=== PATIENT | male | born 1950 | race Caucasian/White ===

== ENCOUNTER 2018-10-04 18:21 | Emergency (ER) | payer MEDICARE, OTHER, SELFPAY ==
[2018-10-04] VITALS (8 sets, daily range): BP systolic 120–139; BP diastolic 80–94; PULSE 63–76; RESP 14–26; TEMP 36.7; O2SAT 96–100; BMI 31.3
--- NOTE | 2018-10-04 17:35 | PC.NURSE ---
per dr Coronado pt is being sent here for in and out of afib. pt knows he's in afib when he becomes sob with small amount of exertion. pt has long history of afib with multiple cardioversions. pt's caridiologist is dr adair in [place]. today new dx of flutter, not in records.
--- NOTE | 2018-10-04 18:27 | DI.RAD.S_ITS ---
PROCEDURE: XR CHEST 1V INDICATIONS: new onset dysrhythmia TECHNIQUE: One view of the chest was acquired. COMPARISON: [facility], , CHEST 1 VIEW, 01/04/2013, 8:25. FINDINGS: Surgical changes and devices: Sternotomy wires and possible aneurysm clip are again seen. Lungs and pleura: Lungs are clear. No pleural effusions or pneumothorax. Mediastinum: Mediastinal contours appear normal. Heart size is enlarged. Bones and chest wall: No suspicious bony lesions. Overlying soft tissues appear unremarkable. IMPRESSION: No acute pulmonary pathology. Cardiomegaly. Dictated by: Kennedy Gray M.D. on 10/04/2018 at 18:47 Approved by: Kennedy Gray M.D. on 10/04/2018 at 18:47
[2018-10-04 18:54] LABS: Add Manual Diff / Slide Review NO; Basophils Absolute Auto 100 /uL (0-100); Basophils Percent Auto 0.9 % (0-2); Eosinophils Absolute Auto 200 /uL (0-450); Eosinophils Percent Auto 3.2 % (2-4); Hematocrit 42.1 % (41-53); Lymphocytes Absolute Auto 2100 /uL (1100-4500); Lymphocytes Percent Auto 28.8 % (25-40); Mean Corpuscular HGB Conc 33.2 % (30-36); Mean Corpuscular Volume 87.3 fL (80-100); Monocytes Absolute Auto 500 /uL (0-900); Monocytes Percent Auto 7.5 % (3-14); Neutrophils Absolute Auto 4300 /uL (1500-7000); Neutrophils Percent Auto 59.6 % (50-75); Platelet Count 186 X10^3/uL (150-400); Red Blood Cell Count 4.83 X10^6/uL (4.5-5.9); Red Cell Distribution Width 13.1 % (11.6-14.8); White Blood Cell Count 7.2 X10^3/uL (4.5-11.0)
[2018-10-04 19:03] LABS: Blood Urea Nitrogen 24 mg/dL (9-20); Calcium 9.5 mg/dL (8.4-10.2); Carbon Dioxide 26 mmol/L (22-32); Chloride 102 mmol/L (98-107); Creatine Kinase 126 U/L (55-170); Estimated Glomerular Filt Rate > 60.0 mL/min (>60); Glucose 99 mg/dL (80-110); Magnesium 2.2 mg/dL (1.6-2.3); Sodium 138 mmol/L (137-145)
[2018-10-04 19:15] LABS: Troponin I < 0.012 ng/mL (0.01-0.034)
[2018-10-04 19:17] LABS: CKMB % Relative Index 1.5 % (1.5-5.0); Creatine Kinase MB 1.91 ng/mL (<2.37); HEMOLYSIS 17 (0-50)
[2018-10-04] MEDS: SODIUM CHLORIDE 0.9% 1,000 ML 150 ML IV (19:18)
--- NOTE | 2018-10-04 19:37 | ED.ARRPALP ---
HPI - Arrhythmia/Palpitations General Chief Complaint: Arrhythmia/Palpitations Stated Complaint: afib, new aflutter onset 16hrs ago. Time Seen by Provider: 10/04/18 18:25 Source: patient and family Mode of arrival: ambulatory Limitations: no limitations History of Present Illness HPI narrative: 68-year-old male Nonsmoker with extensive atrial fibrillation history including multiple cardioversions and ablation presents with symptomatic AFib that started 16 hr ago. He has taken all of his medications as prescribed and feels an irregular heart rhythm and some chest pressure with shortness of breath. He denies chest pain and is not dizzy or lightheaded. He denies nausea or vomiting. He sees cardiology in [place] complaint: palpitations, irregular heart beat and atrial fibrillation Onset (ago): hour(s) Duration: constant Severity: mild Context: occurred during rest Arrhythmia history: atrial fibrillation Associated symptoms: chest pain and shortness of breath Related Data Home Medications Medication Instructions Recorded Confirmed CA PANTOTHENATE/FOLIC ACID/VIT 1 tab PO QDAY #0 12/15/12 (MULTIVITAMIN) Fish Oil 1,000 mg PO QDAY #0 12/27/12 magnesium oxide 500 mg PO QDAY #0 12/27/12 dofetilide [Tikosyn] 0.5 mg PO BID #0 01/04/13 acetaminophen [Tylenol Extra 1,000 mg PO Q6HP PRN #0 09/12/16 Strength] aspirin 325 mg PO QDAY #0 04/20/17 pravastatin 20 mg PO HS #0 04/20/17 Previous Rx's Medication Instructions Recorded lidocaine 1 tyree R QIDP PRN #30 gm 09/18/16 Allergies Allergy/AdvReac Type Severity Reaction Status Date / Time amiodarone [AMIODARONE] Allergy Severe THYROID Unverified 11/11/17 13:07 STORM etomidate [ETOMIDATE] AdvReac Severe uncontrollable Unverified 11/11/17 13:07 shaking Review of Systems Constitutional Denies chills, Denies fever(s), Denies lethargy and Denies weakness Eyes Denies change in vision, Denies eye discharge, Denies irritation and Denies loss of vision ENT Ears, Nose, Mouth, and Throat: Denies change in voice, Denies neck pain and Denies sore throat Cardiovascular Reports chest pain, Denies irregular heart rhythm, Denies lightheadedness, Reports palpitations, Reports dyspnea, Denies dyspnea on exertion and Denies orthopnea Respiratory Denies cough, Reports dyspnea, Denies dyspnea on exertion and Denies wheezing Gastrointestinal Gastrointestinal: Denies abdominal pain, Denies change in bowel habits, Denies diarrhea, Denies nausea and Denies vomiting Genitourinary Denies hematuria, Denies flank pain, Denies urinary incontinence and Denies urinary urgency Musculoskeletal Denies neck pain Integumentary/Breasts Denies pruritus, Denies erythema, Denies rash and Denies wounds Neurologic Denies confusion, Denies loss of vision and Denies weakness Psychiatric Denies anxiety, Denies confusion, Denies depression, Denies homicidal ideation and Denies suicidal ideation Endocrine Reports palpitations Hematologic/Lymphatic Denies easy bruising Allergic/Immunologic Denies wheezing PFSH Social History Smoking Status: Never smoker Social History Smoking Status: Never smoker Exam Narrative Exam Narrative: GENERAL: Pleasant 68-year-old male appears stated age, in mild distress HEAD: Atraumatic. Normocephalic. No temporal or scalp tenderness. EYES: Pupils equal round and reactive. Extraocular motions intact. No scleral icterus. No injection or drainage. ENT: Nose without bleeding, purulent drainage or septal hematoma. Throat without erythema, tonsillar hypertrophy or exudate. Uvula midline. Airway patent. NECK: Trachea midline. No JVD or lymphadenopathy. Supple, nontender, no meningeal signs. CARDIOVASCULAR: Regular rate and irregular rhythm without murmurs, gallops, or rubs. RESPIRATORY: Clear to auscultation. Breath sounds equal bilaterally. No wheezes, rales, or rhonchi. GASTROINTESTINAL: Abdomen soft, non-tender, nondistended. No hepato-splenomegaly, or palpable masses. No guarding. EXTREMITIES: No clubbing, cyanosis, or edema. No joint tenderness, effusion, or edema noted. BACK: Nontender without deformity or crepitance. No flank tenderness. NEURO: AOx3. SKIN: No rash or erythema. Initial Vital Signs Initial Vital Signs: Vital Signs Temperature 98.1 F 10/04/18 18:30 Pulse Rate 71 10/04/18 18:30 Respiratory Rate 18 10/04/18 18:30 Blood Pressure 129/89 10/04/18 18:30 Pulse Oximetry 100 03/04/19 18:30 Procedures Cardioversion Indication: symptomatic atrial fib Stability: Stable ASA Class: II Mallampati Airway Classification: Class II Time of Last PO Intake: 14:00 Preparation: quality assurance monitor chassis applied, pulse oximeter, capnometry used, supplemental O2 applied, suction/airway equipment at bedside and IV secured IV Propofol Dose (mgs): 40 Total Time of Sedation (Min): 6 ED Sedation Level: Minimal Cardiac rhythm post-cardioversion: sinus Patient tolerated procedure sedation: Well Complications sedation: none Course Orders Ordered: ED Orders 10/04/18 18:27 XR chest 1V Stat EKG-12 Lead Stat 10/04/18 18:38 Basic Metabolic Panel Stat Complete Blood Count AUTO DIFF Stat Magnesium Stat Thyroid Stimulating Hormone Stat Troponin & CK Cardiac Panel Stat Discontinued Medications Sodium Chloride (Normal Saline 0.9%) 1,000 mls @ 150 mls/hr IV CONT ERICH Last Infusion: 10/04/18 21:45 Dose: 0 mls/hr Admin: 10/04/18 19:18 Dose: 150 mls/hr Propofol (Diprivan) 40 mg IV NOW ONE Stop: 10/04/18 20:53 Last Admin: 10/04/18 20:52 Dose: 40 mg Reevaluation(s) Reevaluation #1: While staff was preparing patient for conscious sedation I contacted his lead process engineer to discuss post shock anticoagulation and in this scenario they recommended 3 weeks of Eliquis. Patient was consented and given 1st push appropriate fall and then spontaneously converted to a normal sinus rhythm. We allowed meds to wear off and he was asymptomatic and said he felt great. He was observed for another hour so and maintained his sinus rhythm Vital Signs - 8 hr 10/04/18 19:41 10/04/18 20:25 10/04/18 20:35 Pulse Rate 69 65 63 Respiratory Rate 17 14 16 Blood Pressure Blood Pressure [Left Arm] 123/85 120/91 H 130/90 Pulse Oximetry 100 10/04/18 20:55 10/04/18 21:00 10/04/18 21:07 Pulse Rate 72 69 76 Respiratory Rate 20 20 Blood Pressure Blood Pressure [Left Arm] 133/84 120/80 Pulse Oximetry 96 97 10/04/18 21:45 Pulse Rate 69 Respiratory Rate 16 Blood Pressure 130/84 Blood Pressure [Left Arm] Pulse Oximetry 98 MDM - Arrhythmia/Palpitations Lab Data Result diagrams: 10/04/18 18:38 10/04/18 18:38 Lab Results 10/04/18 10/04/18 10/04/18 Range/Units 18:38 18:38 18:38 WBC 7.2 (4.5-11.0) X10^3/uL RBC 4.83 (4.5-5.9) X10^6/uL Hgb 14.0 (13.5-17.5) g/dL Hct 42.1 (41-53) % MCV 87.3 (80-100) fL MCH 29.0 (26-34) PG MCHC 33.2 (30-36) % RDW 13.1 (11.6-14.8) % Plt Count 186 (150-400) X10^3/uL Neut % (Auto) 59.6 (50-75) % Lymph % (Auto) 28.8 (25-40) % [place] % (Auto) 7.5 (3-14) % Eos % (Auto) 3.2 (2-4) % Baso % (Auto) 0.9 (0-2) % Neut # (Auto) 4300 (2268-0261) /uL Lymph # (Auto) 2100 (7039-2780) /uL [place] # (Auto) 500 (0-900) /uL Eos # (Auto) 200 (0-450) /uL Baso # (Auto) 100 (0-100) /uL Sodium 138 (137-145) mmol/L Potassium 4.0 (3.4-5.1) mmol/L Chloride 102 (98-107) mmol/L Carbon Dioxide 26 (22-32) mmol/L BUN 24 H (9-20) mg/dL Creatinine 0.80 (0.66-1.25) mg/dL Estimated GFR > 60.0 (>60) mL/min BUN/Creatinine Ratio 30.0 H (6-22) Glucose 99 (80-110) mg/dL Calcium 9.5 (8.4-10.2) mg/dL Magnesium 2.2 (1.6-2.3) mg/dL Total Creatine Kinase 126 (55-170) U/L CK-MB (CK-2) 1.91 (<2.37) ng/mL CK-MB (CK-2) Rel Index 1.5 (1.5-5.0) % Troponin I < 0.012 (0.01-0.034) ng/mL TSH 1.84 (0.47-4.68) uIU/mL Discharge Plan Departure Patient Disposition: Home Clinical Impression: Atrial fibrillation Qualifiers: Atrial fibrillation type: paroxysmal Qualified Code(s): I48.0 - Paroxysmal atrial fibrillation Discharge Date/Time: 10/04/18 21:45 Interventions: ED Discharge Assessment Last Done: 10/04/18 21:45 Instructions: DI for Atrial Fibrillation Activity Restrictions/Additional Instructions: *You have been diagnosed with [ atrial fibrillation ] *What to do: *Take medications as directed *Follow up with your primary care provider in 2-3 days, call for an appointment. Let them know you were seen in the Emergency Department and that we ask that you be seen in follow up *Return to ER if you should have any new, worsening or concerning symptoms Prescriptions: No Action CA PANTOTHENATE/FOLIC ACID/VIT (MULTIVITAMIN) 1 tab PO QDAY Qty: 0 RF: 0 Fish Oil 1,000 mg PO QDAY Qty: 0 RF: 0 magnesium oxide 500 MG tablet 500 mg PO QDAY Qty: 0 RF: 0 dofetilide [Tikosyn] 500 MCG capsule 0.5 mg PO BID Qty: 0 RF: 0 acetaminophen [Tylenol Extra Strength] 500 MG tablet 1,000 mg PO Q6HP PRNQty: 0 RF: 0 lidocaine 5 % cream 1 tyree R QIDP PRNQty: 30 RF: 2 pravastatin 20 MG tablet 20 mg PO HS Qty: 0 RF: 0 aspirin 325 MG tablet 325 mg PO QDAY Qty: 0 RF: 0 Referrals: Cabrera Zafar MD [Primary Care Provider] -
[2018-10-04 19:46] LABS: Thyroid Stimulating Hormone 1.84 uIU/mL (0.47-4.68)
--- NOTE | 2018-10-04 20:06 | ED_ITS ---
HPI - Arrhythmia/Palpitations General Chief Complaint: Arrhythmia/Palpitations Stated Complaint: afib, new aflutter onset 16hrs ago. Time Seen by Provider: 10/04/18 18:25 Source: patient and family Mode of arrival: ambulatory Limitations: no limitations History of Present Illness HPI narrative: 68-year-old male Nonsmoker with extensive atrial fibrillation history including multiple cardioversions and ablation presents with symptomatic AFib that started 16 hr ago. He has taken all of his medications as prescribed and feels an irregular heart rhythm and some chest pressure with shortness of breath. He denies chest pain and is not dizzy or lightheaded. He denies nausea or vomiting. He sees cardiology in [place] complaint: palpitations, irregular heart beat and atrial fibrillation Onset (ago): hour(s) Duration: constant Severity: mild Context: occurred during rest Arrhythmia history: atrial fibrillation Associated symptoms: chest pain and shortness of breath Related Data Home Medications Medication Instructions Recorded Confirmed CA PANTOTHENATE/FOLIC ACID/VIT 1 tab PO QDAY #0 12/15/12 (MULTIVITAMIN) Fish Oil 1,000 mg PO QDAY #0 12/27/12 magnesium oxide 500 mg PO QDAY #0 12/27/12 dofetilide [Tikosyn] 0.5 mg PO BID #0 01/04/13 acetaminophen [Tylenol Extra 1,000 mg PO Q6HP PRN #0 09/12/16 Strength] aspirin 325 mg PO QDAY #0 04/20/17 pravastatin 20 mg PO HS #0 04/20/17 Previous Rx's Medication Instructions Recorded lidocaine 1 tyree R QIDP PRN #30 gm 09/18/16 Allergies Allergy/AdvReac Type Severity Reaction Status Date / Time amiodarone [AMIODARONE] Allergy Severe THYROID Unverified 11/11/17 13:07 STORM etomidate [ETOMIDATE] AdvReac Severe uncontrollable Unverified 11/11/17 13:07 shaking Review of Systems Constitutional Denies chills, Denies fever(s), Denies lethargy and Denies weakness Eyes Denies change in vision, Denies eye discharge, Denies irritation and Denies loss of vision ENT Ears, Nose, Mouth, and Throat: Denies change in voice, Denies neck pain and Denies sore throat Cardiovascular Reports chest pain, Denies irregular heart rhythm, Denies lightheadedness, Reports palpitations, Reports dyspnea, Denies dyspnea on exertion and Denies or thopnea Respiratory Denies cough, Reports dyspnea, Denies dyspnea on exertion and Denies wheezing Gastrointestinal Gastrointestinal: Denies abdominal pain, Denies change in bowel habits, Denies diarrhea, Denies nausea and Denies vomiting Genitourinary Denies hematuria, Denies flank pain, Denies urinary incontinence and Denies urinary urgency Musculoskeletal Denies neck pain Integumentary/Breasts Denies pruritus, Denies erythema, Denies rash and Denies wounds Neurologic Denies confusion, Denies loss of vision and Denies weakness Psychiatric Denies anxiety, Denies confusion, Denies depression, Denies homicidal ideation and Denies suicidal ideation Endocrine Reports palpitations Hematologic/Lymphatic Denies easy bruising Allergic/Immunologic Denies wheezing PFSH Social History Smoking Status: Never smoker Social History Smoking Status: Never smoker Exam Narrative Exam Narrative: GENERAL: Pleasant 68-year-old male appears stated age, in mild distress HEAD: Atraumatic. Normocephalic. No temporal or scalp tenderness. EYES: Pupils equal round and reactive. Extraocular motions intact. No scleral icterus. No injection or drainage. ENT: Nose without bleeding, purulent drainage or septal hematoma. Throat without erythema, tonsillar hypertrophy or exudate. Uvula midline. Airway patent. NECK: Trachea midline. No JVD or lymphadenopathy. Supple, nontender, no meningeal signs. CARDIOVASCULAR: Regular rate and irregular rhythm without murmurs, gallops, or rubs. RESPIRATORY: Clear to auscultation. Breath sounds equal bilaterally. No wheezes, rales, or rhonchi. GASTROINTESTINAL: Abdomen soft, non-tender, nondistended. No hepato- splenomegaly, or palpable masses. No guarding. EXTREMITIES: No clubbing, cyanosis, or edema. No joint tenderness, effusion, or edema noted. BACK: Nontender without deformity or crepitance. No flank tenderness. NEURO: AOx3. SKIN: No rash or erythema. Initial Vital Signs Initial Vital Signs: Vital Signs Temperature 98.1 F 10/04/18 18:30 Pulse Rate 71 10/04/18 18:30 Respiratory Rate 18 10/04/18 18:30 Blood Pressure 129/89 10/04/18 18:30 Pulse Oximetry 100 10/04/18 18:30 Procedures Cardioversion Indication: symptomatic atrial fib Stability: Stable ASA Class: II Mallampati Airway Classification: Class II Time of Last PO Intake: 14:00 Preparation: secured entrance monitor applied, pulse oximeter, capnometry used, supplemental O2 applied, suction/airway equipment at bedside and IV secured IV Propofol Dose (mgs): 40 Total Time of Sedation (Min): 6 ED Sedation Level: Minimal Cardiac rhythm post-cardioversion: sinus Patient tolerated procedure sedation: Well Complications sedation: none Course Orders Ordered: ED Orders 10/04/18 18:27 XR chest 1V Stat EKG-12 Lead Stat 10/04/18 18:38 Basic Metabolic Panel Stat Complete Blood Count AUTO DIFF Stat Magnesium Stat Thyroid Stimulating Hormone Stat Troponin & CK Cardiac Panel Stat Discontinued Medications Sodium Chloride (Normal Saline 0.9%) 1,000 mls @ 150 mls/hr IV CONT ERICH Last Infusion: 10/04/18 21:45 Dose: 0 mls/hr Admin: 10/04/18 19:18 Dose: 150 mls/hr Propofol (Diprivan) 40 mg IV NOW ONE Stop: 10/04/18 20:53 Last Admin: 10/04/18 20:52 Dose: 40 mg Reevaluation(s) Reevaluation #1: While staff was preparing patient for conscious sedation I contacted his opal miner to discuss post shock anticoagulation and in this scenario they recommended 3 weeks of Eliquis. Patient was consented and given 1st push appropriate fall and then spontaneously converted to a normal sinus rhythm. We allowed meds to wear off and he was asymptomatic and said he felt great. He was observed for another hour so and maintained his sinus rhythm Vital Signs - 8 hr 10/04/18 19:41 10/04/18 20:25 10/04/18 20:35 Pulse Rate 69 65 63 Respiratory Rate 17 14 16 Blood Pressure Blood Pressure [Left Arm] 123/85 120/91 H 130/90 Pulse Oximetry 100 10/04/18 20:55 10/04/18 21:00 10/04/18 21:07 Pulse Rate 72 69 76 Respiratory Rate 20 20 Blood Pressure Blood Pressure [Left Arm] 133/84 120/80 Pulse Oximetry 96 97 10/04/18 21:45 Pulse Rate 69 Respiratory Rate 16 Blood Pressure 130/84 Blood Pressure [Left Arm] Pulse Oximetry 98 MDM - Arrhythmia/Palpitations Lab Data Result diagrams: 10/04/18 18:38 10/04/18 18:38 Lab Results 10/04/18 10/04/18 10/04/18 Range/Units 18:38 18:38 18:38 WBC 7.2 (4.5-11.0) X10^3/uL RBC 4.83 (4.5-5.9) X10^6/uL Hgb 14.0 (13.5-17.5) g/dL Hct 42.1 (41-53) % MCV 87.3 (80-100) fL MCH 29.0 (26-34) PG MCHC 33.2 (30-36) % RDW 13.1 (11.6-14.8) % Plt Count 186 (150-400) X10^3/uL Neut % (Auto) 59.6 (50-75) % Lymph % (Auto) 28.8 (25-40) % [place] % (Auto) 7.5 (3-14) % Eos % (Auto) 3.2 (2-4) % Baso % (Auto) 0.9 (0-2) % Neut # (Auto) 4300 (3414-7244) /uL Lymph # (Auto) 2100 (3103-9348) /uL [place] # (Auto) 500 (0-900) /uL Eos # (Auto) 200 (0-450) /uL Baso # (Auto) 100 (0-100) /uL Sodium 138 (137-145) mmol/L Potassium 4.0 (3.4-5.1) mmol/L Chloride 102 (98-107) mmol/L Carbon Dioxide 26 (22-32) mmol/L BUN 24 H (9-20) mg/dL Creatinine 0.80 (0.66-1.25) mg/dL Estimated GFR > 60.0 (>60) mL/min BUN/Creatinine Ratio 30.0 H (6-22) Glucose 99 (80-110) mg/dL Calcium 9.5 (8.4-10.2) mg/dL Magnesium 2.2 (1.6-2.3) mg/dL Total Creatine Kinase 126 (55-170) U/L CK-MB (CK-2) 1.91 (<2.37) ng/mL CK-MB (CK-2) Rel Index 1.5 (1.5-5.0) % Troponin I < 0.012 (0.01-0.034) ng/mL TSH 1.84 (0.47-4.68) uIU/mL Discharge Plan Departure Patient Disposition: Home Clinical Impression: Atrial fibrillation Qualifiers: Atrial fibrillation type: paroxysmal Qualified Code(s): I48.0 - Paroxysmal atrial fibrillation Discharge Date/Time: 10/04/18 21:45 Interventions: ED Discharge Assessment Last Done: 10/04/18 21:45 Instructions: DI for Atrial Fibrillation Activity Restrictions/Additional Instructions: *You have been diagnosed with [ atrial fibrillation ] *What to do: *Take medications as directed *Follow up with your primary care provider in 2-3 days, call for an appointment. Let them know you were seen in the Emergency Department and that we ask that you be seen in follow up *Return to ER if you should have any new, worsening or concerning symptoms Prescriptions: No Action CA PANTOTHENATE/FOLIC ACID/VIT (MULTIVITAMIN) 1 tab PO QDAY Qty: 0 RF: 0 Fish Oil 1,000 mg PO QDAY Qty: 0 RF: 0 magnesium oxide 500 MG tablet 500 mg PO QDAY Qty: 0 RF: 0 dofetilide [Tikosyn] 500 MCG capsule 0.5 mg PO BID Qty: 0 RF: 0 acetaminophen [Tylenol Extra Strength] 500 MG tablet 1,000 mg PO Q6HP PRNQty: 0 RF: 0 lidocaine 5 % cream 1 tyree R QIDP PRNQty: 30 RF: 2 pravastatin 20 MG tablet 20 mg PO HS Qty: 0 RF: 0 aspirin 325 MG tablet 325 mg PO QDAY Qty: 0 RF: 0 Referrals: Cabrera Zafar MD [Primary Care Provider] -
[2018-10-04] MEDS: PROPOFOL 200 MG/20 ML VIAL 40 MG IV (20:52)
--- NOTE | 2018-10-04 20:55 | PC.NURSE ---
After the patient was given 40mg of propofol by Dr. Roa patient showed a NSR on the monitor. provider and respiratory at bedside. no new orders at this time. patient did not get cardioverted. patient tolerated well. patient states that he feels much better and has no chest pressure.
--- NOTE | 2018-10-04 20:55 | PC.NURSE ---
After the patient was given 40mg of propofol by Dr. Roa patient showed a NSR on the monitor. provider and respiratory at bedside. no new orders at this time. patient did not get cardioverted via shock. patient tolerated medication well. patient states that he feels much better and has no chest pressure.
== END 2018-10-04 21:45 | disposition home or self-care (01) ==
PROVIDERS: Emergency Provider Emergency Medicine; Family Provider Internal Medicine; PCP Internal Medicine
DX: I48.0 Paroxysmal atrial fibrillation (principal)
CPT/HCPCS: 36591; 71045; 80048; 82550; 82553; 83735; 84443; 84484; 85025; 92960; 93005; 93010; 94770; 96361; 96374; 99284; 99285; J2704

== ENCOUNTER → 2018-11-08 09:18 | Outpatient (CLI) | payer MEDICARE, OTHER, SELFPAY ==
--- NOTE | 2018-11-08 | DI.RAD.S_ITS ---
PROCEDURE: FL JOINT INJECTION LARGE LT INDICATIONS: PRIMARY OSTEOARTHRITIS, LT SHOULDER TECHNIQUE: The indications, alternatives, benefits, risks, and complications of the procedure were explained to the patient. Written informed consent was obtained and placed in the chart. The patient was placed in an appropriate position on the fluoroscopy table, and a site was chosen for percutaneous access under fluoroscopic guidance. The site was prepped and draped in a sterile fashion. Local anesthetic was administered using a 1% lidocaine solution. A hypodermic or spinal needle was then used to access the symptomatic joint. Intra-articular location of the needle tip was confirmed by injecting a small amount of contrast, followed by steroid administration. The needle was then withdrawn, and a bandage applied to the puncture site. FINDINGS: Joint injected: Left shoulder Medications injected: 5 mL of 40 mg/mL Kenalog and 0.5% Ropivacaine mixture. Complications: None. IMPRESSION: Successful fluoroscopically guided administration of steroid and anaesthetic solution into the left shoulder joint. Dictated by: Juanjose Best M.D. on 11/08/2018 at 12:40 Approved by: Juanjose Best M.D. on 11/08/2018 at 12:42
== END ==
PROVIDERS: PCP Internal Medicine
DX: M19.012 Primary osteoarthritis, left shoulder (principal)
CPT/HCPCS: 20610; 77002

== ENCOUNTER → 2019-02-04 13:44 | Outpatient (CLI) | payer MEDICARE, OTHER, SELFPAY ==
--- NOTE | 2019-02-04 | DI.RAD.S_ITS ---
PROCEDURE: FL JOINT INJECTION LARGE LT INDICATIONS: pain in left shoulder TECHNIQUE: The indications, alternatives, benefits, risks, and complications of the procedure were explained to the patient. Written informed consent was obtained and placed in the chart. The patient was placed in an appropriate position on the fluoroscopy table, and a site was chosen for percutaneous access under fluoroscopic guidance. The site was prepped and draped in a sterile fashion. Local anesthetic was administered using a 1% lidocaine solution. A hypodermic or spinal needle was then used to access the symptomatic joint. Intra-articular location of the needle tip was confirmed by injecting a small amount of contrast, followed by steroid administration. The needle was then withdrawn, and a bandage applied to the puncture site. FINDINGS: Joint injected: Left shoulder Medications injected: 4 mL of 40 mg/mL Kenalog and 0.5% Ropivacaine mixture. Patient's pain before injection: 1 out of 10. Patient's pain after injection: 0 out of 10. Complications: None. IMPRESSION: Successful fluoroscopically guided administration of steroid and anaesthetic solution into the left glenohumeral joint. Dictated by: Harrison Ballesteros M.D. on 02/04/2019 at 16:44 Approved by: Harrison Ballesteros M.D. on 02/04/2019 at 16:45
== END ==
PROVIDERS: PCP Internal Medicine; Visit Provider Orthopaedic Surgery
DX: M25.512 Pain in left shoulder (principal)
CPT/HCPCS: 20610; 77002

== ENCOUNTER → 2019-06-23 06:35 | Outpatient (CLI) | payer MEDICARE, OTHER, SELFPAY ==
--- NOTE | 2019-06-23 06:44 | DI.MRI.S_ITS ---
PROCEDURE: MR SHOULDER LT WO CON INDICATIONS: Chronic left shoulder pain with decreased range of motion TECHNIQUE: Noncontrast oblique coronal T2 fast spin echo with fat saturation, oblique sagittal T1 spin echo and T2 fast spin echo with fat saturation, axial T1 spin echo and T2 fast spin echo with fat saturation through the shoulder. COMPARISON: [facility] [place], CR, XR SHOULDER 2+ VIEWS LEFT, 05/24/2019, 14:50. FINDINGS: Image quality: Excellent. Rotator cuff: Infraspinatus tendinopathy with full-thickness articular sided tear and low-grade bursal surface fraying. Mild teres minor tendinopathy. Supraspinatus tendinopathy with partial thickness bursal sided an articular sided tear. No full-thickness or retracted defect. High-grade bursal and articular sided partial-thickness versus complete rupture of the subscapularis tendon.No definite rotator cuff muscle atrophy. Bones and bursae: No bone marrow contusions or fractures. However, there is prominent marrow edema in the subchondral humeral head and glenoid. Full-thickness glenohumeral articular cartilage loss and subchondral sclerosis/spurring. Large joint effusion, with diffuse irregularity suggestive of reactive synovitis and/or small loose bodies/debris. Prominent cyst or erosion involving the anterior glenoid for example image 18 series 6 Bilateral moderate acromioclavicular joint degeneration. Acromion demonstrates conventional anatomy, without an os acromiale. Mild subacromial-subdeltoid bursitis. Capsule and soft tissues: Circumferential macerated labral tear which could be chronic/degenerative. Long head of the biceps tendon markedly thickened with intrasubstance T2 hyperintensity although no definite complete rupture seen. Complete obliteration of the subcoracoid fat. Coracohumeral ligament not well seen and may be torn. IMPRESSION: Severe glenohumeral degenerative joint disease with large joint effusion. Diffuse intrasynovial irregularity suggestive of reactive synovitis and/or loose bodies or debris. Large T2 hyperintense cyst or erosion involving the anterior glenoid. Cannot exclude erosive arthropathy. Full-thickness tear of the subscapularis tendon. Severe long head biceps tendinopathy without definite medial subluxation. No complete rupture Infraspinatus tendinopathy with low-grade bursal surface fraying and partial-thickness articular sided tear. Teres minor tendinopathy Supraspinatus tendinopathy and bursal and articular surface fraying. Ill-defined circumferential macerated labral tear which could be chronic/degenerative in nature. Dictated by: Yogesh Her M.D. on 06/23/2019 at 8:43 Approved by: Yogesh Her M.D. on 06/23/2019 at 8:55
== END ==
PROVIDERS: PCP Internal Medicine; Visit Provider Orthopaedic Surgery
DX: M19.012 Primary osteoarthritis, left shoulder (principal); M19.011 Primary osteoarthritis, right shoulder; M75.121 Complete rotator cuff tear or rupture of right shoulder, not specified as traumatic; M25.461 Effusion, right knee; M67.911 Unspecified disorder of synovium and tendon, right shoulder; G89.29 Other chronic pain
CPT/HCPCS: 73221

== ENCOUNTER 2019-07-07 12:09 | Emergency (ER) | payer MEDICARE, OTHER, SELFPAY ==
[2019-07-07] VITALS (12 sets, daily range): BP systolic 127–147; BP diastolic 85–108; PULSE 64–76; RESP 10–20; TEMP 37.3; O2SAT 94–100; BMI 31.3
--- NOTE | 2019-07-07 12:17 | DI.RAD.S_ITS ---
PROCEDURE: XR ANKLE RT 2V INDICATIONS: pain, deformity TECHNIQUE: 3 views of the ankle were acquired. COMPARISON: None. FINDINGS: Bones: There is roughly 17 mm of lateral dislocation, and 20 mm of posterior dislocation of the talus, relative to the distal tibia. There is a mildly displaced fracture of the medial malleolus. There is a moderately displaced oblique fracture of the distal fibula. There is a 30 mm diameter fragment projecting over the posterior aspect of the distal tibia, which may represent a posterior malleolus fracture. Soft tissues: No tibiotalar joint effusion. Achilles tendon appears normal. IMPRESSION: 1. Fracture dislocation of the ankle as described above. Dictated by: Swetha Guerrero M.D. on 07/07/2019 at 13:35 Approved by: Swetha Guerrero M.D. on 07/07/2019 at 13:36
--- NOTE | 2019-07-07 13:19 | ED_ITS ---
HPI - Extremity Injury (Lower) General Chief Complaint: Extremity Injury, Lower Stated Complaint: Right ankle injury Time Seen by Provider: 07/07/19 13:19 Source: EMS Mode of arrival: EMS History of Present Illness HPI Narrative: 69-year-old gentleman walking his dog earlier this morning and twisted his right foot. Immediate deformity noted he was unable to walk on it. Upon arrival in the ER grossly deformed but is neurovascularly intact. There are no additional injuries associated with this and this was not related to a fall Onset (ago): hour(s) Related Data Home Medications Medication Instructions Recorded Confirmed CA PANTOTHENATE/FOLIC ACID/VIT 1 tab PO QDAY #0 12/15/12 (MULTIVITAMIN) Fish Oil 1,000 mg PO QDAY #0 12/27/12 magnesium oxide 500 mg PO QDAY #0 12/27/12 dofetilide [Tikosyn] 0.5 mg PO BID #0 01/04/13 07/07/19 acetaminophen [Tylenol Extra 1,000 mg PO Q6HP PRN #0 09/12/16 Strength] aspirin 325 mg PO QDAY #0 04/20/17 oxycodone-acetaminophen 1 tab PO BEDTIME PRN 07/07/19 07/07/19 pravastatin 20 mg PO DAILY 07/07/19 Previous Rx's Medication Instructions Recorded lidocaine 1 tyree R QIDP PRN #30 gm 09/18/16 oxycodone-acetaminophen [Percocet] 1 tab PO Q6H PRN #10 tab 07/07/19 Allergies Allergy/AdvReac Type Severity Reaction Status Date / Time amiodarone [AMIODARONE] Allergy Severe THYROID Verified 07/07/19 12:17 STORM etomidate [ETOMIDATE] AdvReac Severe uncontrollable Verified 07/07/19 12:17 shaking Review of Systems Review of Systems Narrative: Has had multiple episodes of atrial fibrillation in the past feels that he currently is in sinus rhythm. He describes no syncope, no chest pain no shortness of breath. otherwise unremarkable Patient History Medical History (Updated 07/07/19 @ 16:13 by Priscila Walsh MD) A-fib (Acute) Ankle fracture, right (Acute 07/07/19) Arthritis (Acute) CAD (coronary artery disease) (Acute) Cardiomyopathy (Acute) GERD (gastroesophageal reflux disease) (Acute) Hearing impaired (Acute) HLD (hyperlipidemia) (Acute) Low back pain (Acute) MARTÍN treated with BiPAP (Acute) Osteoarthritis (Acute) Scoliosis (Acute) SVT (supraventricular tachycardia) (Acute) Surgical History (Updated 07/07/19 @ 15:31 by Claudia Redman RN) History of arthroplasty of right hip (Acute ~12/2013) History of bilateral carpal tunnel release (Acute ~1977) History of colonoscopy (Acute) Hx of aortic valve repair (Acute) Hx of bilateral inguinal hernia repair (Acute 04/23/17) Hx of hemorrhoidectomy (Acute ~12/2016) Hx of maze procedure (Acute) Hx of total hip arthroplasty (Acute) Social History Smoking Status: Never smoker Smoking Status: Never smoker Substance Use Type: does not use Exam Narrative Exam Narrative: General: Healthy appearing, in no acute distress. Able to give a complete and full history cooperative. Well-nourished well-developed HEENT: Moist mucous membranes, normal sclera with reactive pupils, Neck: No JVD, supple Respiratory: Lungs are clear to auscultation, no wheezing no rales no rhonchi. Full and symmetrical air movement Cardiac: Regular rate and rhythm no murmurs no bruits Abdomen: Soft nontender good bowel tones, no flank pain Skin: Warm and dry, no rashes Neurologic: Grossly neurologically intact with no obvious asymmetries or abnormalities Extremities: Right ankle deformity. Neuro vascularly intact. Full pulses palpable. Psych: appropriate insight and affect Initial Vital Signs Initial Vital Signs: Vital Signs Temperature 99.2 F 07/07/19 12:17 Pulse Rate 76 07/07/19 12:17 Respiratory Rate 15 07/07/19 12:17 Blood Pressure 147/90 H 07/07/19 12:17 Pulse Oximetry 94 07/07/19 12:17 Procedures Orthopedic Fracture Reduction right ankle: Time Out Performed: Yes Side: right Fracture Reduction Location: tibia Analgesia: procedural sedation Technique: direct manipulation and traction/counter-traction Post Reduction X-rays Demonstrate: acceptable reduction Post-reduction neuro exam: intact Post-reduction vascular exam: intact Splint Applied: Yes Patient Tolerated Procedure: Well Orthopedic Splinting/Casting ankle: Side: right Lower Extremity Injury Location: ankle Lower Extremity Immobilizer: posterior splint and stirrup splint Other Orthopedic Equipment: crutches Post splinting neuro exam: intact Post splinting vascular exam: intact Placed by: Provider Procedural Sedation Patient Age: Patient is 5yrs or older Consent signed: Yes Time out performed: Yes Indication: fracture/dislocation reduction ASA Class: II Mallampati Airway Classification: Class II Time of Last PO Intake: 08:00 Preparation: awake overnight monitor applied, pulse oximeter, supplemental O2 applied, suction/airway equipment at bedside and IV secured IV Propofol dose (mg): 60 Intraservice time/total sedation time (min): 12 ED Sedation Level: Moderate (Concious) Patient Tolerated Procedure: Well Complications: none Course Orders Ordered: ED Orders 07/07/19 12:17 XR ankle RT 2V Stat 07/07/19 14:09 EKG-12 Lead Stat 07/07/19 14:21 Complete Blood Count AUTO DIFF Stat Comprehensive Metabolic Panel Stat 07/07/19 15:29 XR ankle RT 2V Stat Discontinued Medications Ketorolac Tromethamine (Toradol) 15 mg IV NOW ONE Stop: 07/07/19 16:07 Last Admin: 07/07/19 16:20 Dose: 15 mg Documented by: GEORGIAARRINGTO Propofol (Diprivan) 45 mg 0.5 mg/kg (45 mg) IV NOW ONE Stop: 07/07/19 14:11 Last Admin: 07/07/19 16:02 Dose: Not Given Documented by: GEORGIAARRINGTO Propofol (Diprivan) 60 mg IV NOW ONE Stop: 07/07/19 16:01 Last Admin: 07/07/19 15:15 Dose: 60 mg Documented by: MO Reevaluation(s) Reevaluation #1: Post reduction x-ray looks beautiful. Splint is nicely applied. Patient has recovered nicely from his conscious sedation. is in the room when questions are answered. Pain is well controlled. Crutches will be given and he will be discharged home Time: 16:07 Vital Signs Vital signs: Vital Signs - 8 hr 07/07/19 12:17 07/07/19 13:05 07/07/19 14:30 Temperature 99.2 F Pulse Rate 76 65 74 Respiratory Rate 15 14 Blood Pressure 147/90 H Blood Pressure [Left Arm] 130/85 143/97 H Pulse Oximetry 94 97 100 07/07/19 15:08 07/07/19 15:15 07/07/19 15:20 Temperature Pulse Rate 66 76 75 Respiratory Rate 17 10 L 12 Blood Pressure Blood Pressure [Left Arm] 137/103 H 127/90 129/90 Pulse Oximetry 99 97 98 07/07/19 15:25 07/07/19 15:30 07/07/19 15:35 Temperature Pulse Rate 70 72 70 Respiratory Rate 16 16 12 Blood Pressure Blood Pressure [Left Arm] 144/100 H 134/99 H 141/101 H Pulse Oximetry 98 97 98 07/07/19 15:40 07/07/19 15:45 07/07/19 16:27 Temperature Pulse Rate 65 75 64 Respiratory Rate 20 20 14 Blood Pressure Blood Pressure [Left Arm] 135/100 H 146/108 H 130/96 H Pulse Oximetry 98 97 97 MDM - Extremity Injury (Lower) Lab Data Result diagrams: 07/07/19 14:21 07/07/19 14:21 Labs: Lab Results 07/07/19 07/07/19 Range/Units 14:21 14:21 WBC 8.7 (4.5-11.0) X10^3/uL RBC 4.80 (4.5-5.9) X10^6/uL Hgb 13.9 (13.5-17.5) g/dL Hct 41.7 (41-53) % MCV 86.9 (80-100) fL MCH 29.0 (26-34) PG MCHC 33.4 (30-36) % RDW 13.1 (11.6-14.8) % Plt Count 203 (150-400) X10^3/uL Neut % (Auto) 79.7 H (50-75) % Lymph % (Auto) 12.5 L (25-40) % [place] % (Auto) 5.8 (3-14) % Eos % (Auto) 1.2 L (2-4) % Baso % (Auto) 0.8 (0-2) % Neut # (Auto) 7000 (8407-0737) /uL Lymph # (Auto) 1100 (9271-6204) /uL [place] # (Auto) 500 (0-900) /uL Eos # (Auto) 100 (0-450) /uL Baso # (Auto) 100 (0-100) /uL Sodium 140 (137-145) mmol/L Potassium 4.3 (3.4-5.1) mmol/L Chloride 102 (98-107) mmol/L Carbon Dioxide 29 (22-32) mmol/L BUN 21 H (9-20) mg/dL Creatinine 0.90 (0.66-1.25) mg/dL Estimated GFR > 60.0 (>60) mL/min BUN/Creatinine Ratio 23.3 H (6-22) Glucose 97 (80-110) mg/dL Calcium 9.8 (8.4-10.2) mg/dL Total Bilirubin 0.7 (0.2-1.3) mg/dL AST 31 (17-59) IU/L ALT 17 (<50) IU/L Alkaline Phosphatase 58 (38-126) U/L Total Protein 7.4 (6.3-8.2) g/dL Albumin 4.6 (3.5-5.0) g/dL Globulin 2.8 (1.7-4.1) g/dL Albumin/Globulin Ratio 1.6 (1.0-2.8) ECG Data Attestation: I personally reviewed and interpreted this ECG as follows: Interpretation: Preop EKG is done he is in a rate controlled atrial fibrillation at a rate of 66. QTC is 462 milliseconds. Nonspecific T-wave abnormalities with no evidence of acute ischemia. Discharge Plan Departure Patient Disposition: Home Clinical Impression: Closed fracture dislocation of ankle Qualifiers: Encounter type: initial encounter Laterality: right Qualified Code(s): S82.891A - Other fracture of right lower leg, initial encounter for closed fracture Discharge Date/Time: 07/07/19 17:01 Instructions: How to Use Crutches, DI for Fracture Activity Restrictions/Additional Instructions: Thank you for coming in today. I am sorry this had to be a part of your day today. You broke and dislocated year ankle today. In the emergency room we were able to reposition it nicely and place it in a splint. Your ankle is unstable at this point and you should not bear any weight at all. Please use the crutches that have been given to you You will need surgery for this fracture dislocation. I have spoken with our orthopedic surgeon command and control systems integrator, Dr. Sam. He has reviewed the x-rays. If you have not heard from his office by the time you get home please give them a call. I have done EKGs and lab work in the emergency department in anticipation of surgery. I suspect that the surgery will be done next week. You can use 600 mg of ibuprofen that you have at home to help with pain. Please keep the leg elevated and ice on the outside of the cast to help with swelling and pain. I have given you a prescription for 10 tablets of Percocet that you could add to the ibuprofen for severe pain if needed. If he choose to take the strong narcotic know that it can cause constipation, and makes it inappropriate for you to drive for at least 6 hours after taking it. Good luck following up with the orthopedic surgeon, I hope you heal quickly Prescriptions: New oxycodone-acetaminophen [Percocet] 5-325 mg tablet 1 tab PO Q6H PRN (Reason: pain) Qty: 10 RF: 0 No Action CA PANTOTHENATE/FOLIC ACID/VIT (MULTIVITAMIN) 1 tab PO QDAY Qty: 0 RF: 0 Fish Oil 1,000 mg PO QDAY Qty: 0 RF: 0 magnesium oxide 500 MG tablet 500 mg PO QDAY Qty: 0 RF: 0 dofetilide [Tikosyn] 500 MCG capsule 0.5 mg PO BID Qty: 0 RF: 0 acetaminophen [Tylenol Extra Strength] 500 MG tablet 1,000 mg PO Q6HP PRNQty: 0 RF: 0 lidocaine 5 % cream 1 tyree R QIDP PRNQty: 30 RF: 2 aspirin 325 MG tablet 325 mg PO QDAY Qty: 0 RF: 0 pravastatin 40 mg tablet 20 mg PO DAILY RF: 0 oxycodone-acetaminophen 5-325 mg tablet 1 tab PO BEDTIME PRN (Reason: shoulder pain) RF: 0 Referrals: Cabrera Zafar MD [Primary Care Provider] - Rosie Sam MD [Physician] - (ankle fracture dislocation)
[2019-07-07 14:36] LABS: Add Manual Diff / Slide Review NO; Basophils Absolute Auto 100 /uL (0-100); Basophils Percent Auto 0.8 % (0-2); Eosinophils Absolute Auto 100 /uL (0-450); Eosinophils Percent Auto 1.2 % (2-4); Hematocrit 41.7 % (41-53); Hemoglobin 13.9 g/dL (13.5-17.5); Lymphocytes Absolute Auto 1100 /uL (1100-4500); Lymphocytes Percent Auto 12.5 % (25-40); Mean Corpuscular HGB Conc 33.4 % (30-36); Mean Corpuscular Volume 86.9 fL (80-100); Monocytes Absolute Auto 500 /uL (0-900); Monocytes Percent Auto 5.8 % (3-14); Neutrophils Absolute Auto 7000 /uL (1500-7000); Neutrophils Percent Auto 79.7 % (50-75); Platelet Count 203 X10^3/uL (150-400); Red Cell Distribution Width 13.1 % (11.6-14.8); White Blood Cell Count 8.7 X10^3/uL (4.5-11.0)
[2019-07-07 14:46] LABS: Alanine Aminotransferase 17 IU/L (<50); Albumin 4.6 g/dL (3.5-5.0); Albumin Globulin Ratio 1.6 (1.0-2.8); Alkaline Phosphatase 58 U/L (38-126); Aspartate Aminotransferase 31 IU/L (17-59); BUN Creatinine Ratio 23.3 (6-22); Bilirubin Total 0.7 mg/dL (0.2-1.3); Blood Urea Nitrogen 21 mg/dL (9-20); Calcium 9.8 mg/dL (8.4-10.2); Carbon Dioxide 29 mmol/L (22-32); Chloride 102 mmol/L (98-107); Estimated Glomerular Filt Rate > 60.0 mL/min (>60); Globulin 2.8 g/dL (1.7-4.1); Glucose 97 mg/dL (80-110); HEMOLYSIS < 15 (0-50); Potassium 4.3 mmol/L (3.4-5.1); Sodium 140 mmol/L (137-145); Total Protein 7.4 g/dL (6.3-8.2)
[2019-07-07] MEDS: PROPOFOL 200 MG/20 ML VIAL 60 MG IV (15:15)
--- NOTE | 2019-07-07 15:29 | DI.RAD.S_ITS ---
PROCEDURE: XR ANKLE RT 2V INDICATIONS: post reduction/splinting TECHNIQUE: 3 views of the ankle were acquired. COMPARISON: [facility], CR, XR ANKLE RT 2V, 07/07/2019, 12:30. FINDINGS: Bones: The alignment is improved. There is residual widening of the lateral ankle joint space and mild lateral displacement of the talus at the tibiotalar joint. A comminuted distal fibular fracture is present. Nondisplaced mediolateral fracture is suspected a. There are bony fragments below the calcaneus, uncertain donor sites. Soft tissues: No tibiotalar joint effusion. Achilles tendon appears normal. IMPRESSION: 1. Improved alignment post close reduction of ankle fracture dislocation. 2. There are osseous fragments below the calcaneus. The donor sites for the fragments are uncertain. Recommend CT for further evaluation. Dictated by: Sara Dan M.D. on 07/07/2019 at 16:31 Approved by: Sara Dan M.D. on 07/07/2019 at 16:37
--- NOTE | 2019-07-07 15:55 | PC.NURSE ---
posterior and stirrup combo splint applied by dr beckett
[2019-07-07] MEDS: KETOROLAC 60 MG/2 ML VIAL 15 MG IV (16:20)
== END 2019-07-07 17:01 | disposition home or self-care (01) ==
PROVIDERS: Emergency Provider Emergency Medicine; PCP Internal Medicine
DX: S82.51XA Displaced fracture of medial malleolus of right tibia, initial encounter for closed fracture (principal); I48.91 Unspecified atrial fibrillation; W18.40XA Slipping, tripping and stumbling without falling, unspecified, initial encounter
CPT/HCPCS: 27762; 29515; 36415; 73600; 80053; 85025; 93005; 96374; 99152; 99284; 99285; 99291; J1885; J2704

== ENCOUNTER 2019-07-11 13:44 | Day surgery (SDC) | payer MEDICARE, OTHER, SELFPAY ==
[2019-07-07 15:09] VITALS: BMI 32.1
[2019-07-11] VITALS (10 sets, daily range): BP systolic 109–148; BP diastolic 81–96; PULSE 59–88; RESP 10–16; TEMP 36.2–37.1; O2SAT 92–97; BMI 31.3
[2019-07-11] MEDS: LACTATED RINGERS 1,000 ML 42 ML IV ×2 (14:36→16:58)
--- NOTE | 2019-07-11 15:14 | P.HP_ITS ---
History of Present Illness History of Present Illness Date Patient Seen: 07/11/19 Time Patient Seen: 15:15 Chief complaint: [id number] Narrative: Patient is a 69 year old male that presents for open reduction internal fixation of his right ankle today. The patient sustained a ankle fracture dislocation on 07/07/2019 when he was running his dog through an agility class. He stopped and went to turned 180? and his right ankle rolled under him and year heard and felt a pop. He was unable to weight bear. Presented [facility] where a ankle fracture dislocation was diagnosed the patient had a reduction maneuver performed and was splinted. Orthopedic cons ultation was obtained. I was asked by my colleague Dr. Sam to assume care for this patient due to his ankle fracture dislocation. Patient presents today. He states his pain has been controlled on oxycodone and ibuprofen. Has a history of open-heart surgeries x2. He takes regular aspirin but has not taken this in a week. He does not take any other blood thinners. He does not take Plavix. States his pain is controlled today he does have some pain higher up on the outside of his leg but he thinks this is from the splint. He has been elevating and nonweightbearing. He has been using a knee scooter and crutches. Denies any numbness or tingling nausea vomiting or other injuries. He has a history of a right total hip bilateral carpal tunnel releases and aortic valve repair. Denies any history of diabetes. He presents with his today. No allergies to antibiotics Patient History Medical History A-fib (Acute) Ankle fracture, right (Acute 07/07/19) Arthritis (Acute) CAD (coronary artery disease) (Acute) Cardiomyopathy (Acute) GERD (gastroesophageal reflux disease) (Acute) Hearing impaired (Acute) HLD (hyperlipidemia) (Acute) Hx of coronary angiogram (Acute 11/29/18) Low back pain (Acute) MARTÍN treated with BiPAP (Acute) Osteoarthritis (Acute) PAC (premature atrial contraction) (Acute) PAF (paroxysmal atrial fibrillation) (Acute) Scoliosis (Acute) SVT (supraventricular tachycardia) (Acute) Surgical History History of arthroplasty of right hip (Acute ~12/2013) History of bilateral carpal tunnel release (Acute ~1977) History of colonoscopy (Acute) Hx of aortic valve repair (Acute) Hx of bilateral inguinal hernia repair (Acute 04/23/17) Hx of hemorrhoidectomy (Acute ~12/2016) Hx of maze procedure (Acute) Hx of total hip arthroplasty (Acute) Family & Social History Social History: household members spouse Tobacco & Substance use: Smoking Status Never smoker Substance Use Type does not use Meds Home Medications and Allergies Home Medications Medication Instructions Recorded Confirmed Type magnesium oxide 500 mg PO BID #0 12/27/12 07/11/19 History dofetilide [Tikosyn] 500 mcg PO BID #0 01/04/13 07/11/19 History acetaminophen [Tylenol Extra 1,000 mg PO Q6HP PRN #0 09/12/16 07/08/19 History Strength] aspirin 325 mg PO QDAY #0 04/20/17 07/11/19 History oxycodone-acetaminophen 1 tab PO BEDTIME PRN 07/07/19 07/11/19 History oxycodone-acetaminophen [Percocet] 1 tab PO Q6H PRN #10 tab 07/07/19 07/11/19 Rx pravastatin 20 mg PO DAILY 07/07/19 07/11/19 History glucosamine sulfate [Glucosamine] 500 mg PO BID 07/11/19 07/11/19 History Allergies Allergy/AdvReac Type Severity Reaction Status Date / Time amiodarone [AMIODARONE] Allergy Severe THYROID Verified 07/07/19 12:17 STORM etomidate [ETOMIDATE] AdvReac Severe uncontrollable Verified 07/07/19 12:17 shaking tramadol AdvReac Intermediate Verified 07/11/19 14:15 Review of Systems Constitutional Comments: Denies fevers chills. Eyes Comments: Denies visual disturbances ENT Comments: Denies congestion or headache Cardiovascular Comments: Denies chest pain, history atrial fibrillation Gastrointestinal Comments: Denies nausea vomiting Genitourinary Comments: Denies flank pain or kidney problems denies dysuria Musculoskeletal Comments: Endorses right ankle and leg pain. Denies numbness or tingling. Endorses limited motion and swelling Endocrine Comments: Denies history of diabetes Hematologic/Lymphatic Comments: Denies any bleeding disorders denies any history of blood clots Exam Vital Signs (past 8 hours): - 07/11/19 14:27 Temperature 98.0 F Pulse Rate 62 Respiratory Rate 16 Blood Pressure 109/84 Pulse Oximetry 97 Oxygen Delivery Method Room Air Narrative Exam Narrative: General: Alert oriented male no acute distress lying in bed at bedside HEENT exam: Normocephalic atraumatic Respiratory exam: Lungs clear to auscultation CV exam: Regular rate rhythm Abdomen: Nontender Musculoskeletal; right lower extremity in splint. Mild ecchymosis. No blisters. Wrinkles. Patient wiggles toes. Calf is soft. No tenderness to palpation the knee or thigh. Mild tenderness around the ankle as expected. No tenderness over the left lower extremity or bilateral upper extremities. Full range of motion of those extremities and neurovascularly intact. Brisk capillary refill on all extremities. Objective Imaging Ankle x-ray right: My impression: The 2 sets of x-rays from 07/07/2019 these were pre reduction post reduction ankle x-rays are AP oblique and lateral 1st 1 demonstrates a ankle fracture dislocation with lateral malleolus and posterior malleolus fractures and medial clear space widening. The post reduction demonstrates improved alignment of the ankle fracture dislocation with the residual fracture displacement of the lateral malleolus posterior malleolus and medial clear space widening. In the radialis impression of the post reduction x-ray there is suggestion of a fragment below the calcaneus on the lateral on expect ann of a both fuse this represents a wrinkle in the splint laterally which is clearly seen on the AP radiograph. No fracture of the calcaneus is of visualized when comparing the postreduction and pre reduction x-rays Assessment & Plan Assessment & Plan narrative: Right ankle fracture dislocation. The patient has a unstable and displaced right ankle fracture dislocation. The patient has been indicated for operative treatment of his ankle fracture. This will be an ORIF of the lateral malleolus. The posterior malleolus is small but does represent a syndesmotic disruption. This will be fixed with syndesmotic fixation as indicated. Then based on the room reduction of the mortise the patient may require a repair of the deltoid ligament if residual valgus gapping is noted. Patient understands that he will be nonweightbearing for 6 weeks and start progressive weight-bearing. The risks and benefits of the procedure have been discussed with the patient even opportunity to ask questions. The risks of surgery include but are not limited to infection, malunion, nonunion, pers istence of pain, damage to nerves and blood vessels, posttraumatic arthritis, DVT, PE, cardiopulmonary complications and . The patient expressed a thorough understanding of the risks and benefits of surgery and has elected to proceed. Consent was signed today. Discussed if a syndesmotic screw was placed this may require of removed removal versus allowing expected loosening or breakage. We discussed this is typically not symptomatic. Patient understands and agrees with the plan. Further discussed vitamin D and calcium recommendations. We discussed postoperative pain management with a regional block and pain medications. Patient got good relief from Toradol in the ER. Will do a small prescription for oral Toradol postoperatively. The patient may take his aspirin for DVT prophylaxis with this but no other anti-inflammatories. Once the Toradol prescription is done he may resume other NSAIDs. Time Spent With Patient Time with patient: 15-24 minutes Quality VTE Deep Vein Thrombosis/Pulmonary Embolism Present on Admission: No
--- NOTE | 2019-07-11 15:43 | P.OP_ITS ---
Operative Date/Time/Diagnoses Date of procedure: 07/11/19 Time of procedure: 16:30 Pre-op diagnosis: 1. Right ankle fracture dislocation s82.891 2. Lateral malleolus fracture 3. Posterior malleolus fracture s82.391 4. syndesmosis disruption s93.439 4. Syndesmosis disruption Post-op diagnosis: same Procedure & Clinicians Procedure: Open reduction internal fixation right ankle fracture dislocation, lateral malleolus cpt [id number] ORIF she fragment ORIF syndesmosis with suture button device cpt 97027 closed treatment posterior malleolus fracture 35752 Same procedure as scheduled: Yes Indications: The patient is a 69-year-old male sustained a right ankle fracture dislocation approximately 5 days ago. He had a closed reduction in the emergency room and then a open reduction internal fixation of his unstable ankle fracture dislocation on today's date. The risks and benefits of the procedure have been discussed with the patient even opportunity to ask questions. The risks of surgery include but are not limited to infection, malunion, nonunion, persistence of pain, symptomatic hardware, need for additional procedures, da mage to nerves and blood vessels, posttraumatic arthritis, DVT, PE, cardiopulmonary complications and . The patient expressed a thorough understanding of the risks and benefits of surgery and has elected to proceed. Consent was signed today. Patient understands the importance of elevation above the heart level for the 1st 2 weeks after surgery. DVT prophylaxis options were discussed with the patient. The patient does not have a history of DVT pulmonary embolism or hypercoagulability. DVT prophylaxis will be with aspirin regular strength b.i.d. until weight-bearing Surgeon: Yessenia Vicente Click Yes if Unassisted: Yes Anesthesia Type: General and Peripheral nerve block Operative Notes Findings: Long oblique distal fibula fracture this was cleaned and stabilized with a 3.5 independent lag screw and 7 hole 1/3 tubular neutralization plate. Additionally there was a wagon staff avulsion fracture at the anterior inferior tib-fib ligament insertion onto the fibula. This was a small thin free fragment and was stabilized using suture. The posterior malleolus fracture was small and minimally displaced but represented a syndesmotic disruption. The posterior malleolus fracture was treated closed and the syndesmosis was open reduced and fixed using a stainless steel suture button from the Arthrex set. The ankle was then examined under fluoroscopic imaging and syndesmosis in clear spaces were stable there was no residual instability noted. Closure Type: primary Specimen(s): none sent Prosthetic devices, grafts, tissues, transplants, or devices: Arthrex 7 hole 1/3 tubular stainless steel plate and 3.5 cortical screws proximal and 3.5 locking screw distal to decrease prominence. Applied: implant(s) (Arthrex 1/3 tubular plate, 7 hole. Arthrex stainless steel tightrope) Estimated Blood Loss (mL): 10 Tourniquet time (min): 66 Procedure in detail: Patient was seen in the preoperative area the site of surgery was marked and informed consent confirmed. The patient was then brought back to the operating room by the anesthesia team and positioned supine on operative table. The patient received a regional block by the anesthesia team for postoperative pain control. Patient was positioned in the supine position general anesthesia was administered. Well-padded thigh tourniquet was placed. All bony prominences were well padded. An SCD was placed on the contralateral lower extremity. The right lower extremities prepped and draped in the standard sterile fashion. A formal time-out procedure was performed confirming the patient's side and site of surgery presence of informed consent and administrat ion of appropriate preoperative antibiotics and presence of appropriate implants. All were accounted for. All were in agreement. Attention turned to the right lower extremity. An Esmarch was used for exsanguination the tourniquet was elevated on the thigh to 250 mm mercury and stayed there for 66 minutes. At this point the C-arm was brought in a scan of the patient's proximal tib tibia and fibula was performed confirming no proximal fibula fracture. Additionally due to the ecchymoses the patient had around the medial foot and into the plantar surface a AP and oblique radiographs with flu oroscopy were obtained of the foot no evidence of Lisfranc injury was noted with a static and a stress exam. At this point attention was returned to the patient's ankle. The posterior border of the fibula was marked out on the skin and a a incision along the posterolateral border was taken down through the skin subcutaneous tissues to the level of the fibula. The fracture was exposed and cleaned of debris. The superficial peroneal nerve was exposed in the anterior aspect of the incision and was protected throughout the entirety of the case. Dissection was also taken up and over the fibula into the syndesmosis. There was a syndesmosis disruption and a wagstaffe flake type fracture of the anterior distal fibula. The long oblique fibula fracture was cleaned of debris using a curette and irrigation. This was then reduced using the reduction clamps. Reduction was confirmed on multiplanar imaging and then this was fixed with the independent lag screw. First a lag screw front to back was attempted however the angle was less than ideal therefore a separate posterior to anterior a distal to proximal lag screw was placed holding the reduction well. At this point a 7 hole Arthrex 1/3 tubular plate was selected and placed along the posterior lateral border of the fibula this was fixed to bone using the BB tacks and then proximally with bicortical screws and distally with locking screws. Next to the syndesmosis was reduced using a 2 O Vicryl suture to fixate the small thin wax staph fragment the fibula reconstituting the anterior tibial fibular ligament a previous attempt with a 3 5 screw and washer was attempted in this area however the thin fracture fragment, fragmented further requiring the suture fixation. This was done through drill holes in the fibula and secured the small fragments well. Attention was then turned to further open reduction internal fixation of the syndesmosis in light of the disruption and the small posterior malleolus fracture which was to be treated closed. The large bone reduction clamp was positioned medially along the tibia and laterally through a open hole in the plate this was confirmed to have the tines on edge and using of thumb pressure as well as gentle clamp reduction at this was held in place and confirmed on fluoroscopy. Then the drill for the tight rope was placed through a hole in the plate directed from posterior to anterior across the fibula and tibia. This bridged all 4 cortices and then the stainless steel tightrope XL was introduced and released medially. The button was flipped and then secured following securing the tight rope the clamp was removed. The mortise was stressed under live fluoroscopy and there is no evidence of opening. The fiber tapes were then cut further of valgus stress testing the deltoid medial ankle was completed with no evidence of gapping therefore the tourniquet was released hemostasis was achieved and the wound was closed in a layered fashion with 2 O Vicryl 4 0 Monocryl and vani in the skin. There were no immediate complications from this procedure. The patient's wound was dressed with Xeroform gauze Webril and a posterior and U splint in neutral dorsiflexion. A bulky [place] cotton was also used. Patient was taken to the recovery area in good condition. Complications: none Post-operative Condition: stable Disposition: PACU Plan for aftercare: Nonweightbearing right lower extremity. Elevate above the heart level for the 1st 2 weeks. Take aspirin for DVT prophylaxis starting postoperative day 1. If taking Toradol the 1st 5 days no other anti- inflammatory while taking Toradol. Follow-up in 2 weeks for staple removal
[2019-07-11] MEDS: fentaNYL 100 MCG/2 ML INJ 50 MCG IV ×2 (15:51→15:54)
[2019-07-11] MEDS: MIDAZOLAM 2 MG/2 ML VIAL IV (15:51)
--- NOTE | 2019-07-11 16:01 | SUR.PREOP ---
Block start time [1551] . Monitoring initiated and maintained throughout procedure. Oxygen and medications given per anesthesiologist instructions. Patient remained stable throughout procedure, no adverse reactions noted. Block end time [1559].
[2019-07-11] MEDS: CEFAZOLIN 2 GM/100 ML FROZ.PIGGY IV (16:06)
--- NOTE | 2019-07-11 16:48 | SUR.OPER ---
Addendum entered by Yogesh Og R.N. 07/11/19 16:50: additional support under b/l wrists with rolled towel Original Note: Supine on padded OR bed, head on pillow, arms secured on padded arm boards at <90 degrees abduction, legs uncrossed, safety belt at thigh, padded bump to right hip, blankets used as bump under operative leg, gel pad under left heel, tape over blanket over lower legs.
--- NOTE | 2019-07-11 17:59 | DI.RAD.S_ITS ---
PROCEDURE: XR ANKLE RT MIN 3V INDICATIONS: ORIF RIGHT ANKLE TECHNIQUE: 18 views of the ankle were acquired. COMPARISON: [facility], , XR ANKLE RT 2V, 07/07/2019, 15:42. FINDINGS: Spot fluoroscopic intraoperative images demonstrating lateral plate and screw fixation of the distal fibula, and tight rope procedure. There is expected intraoperative alignment Dictated by: Yogesh Her M.D. on 07/11/2019 at 18:29 Approved by: Yogesh Her M.D. on 07/11/2019 at 18:31
== END 2019-07-11 19:19 | disposition home or self-care (01) ==
PROVIDERS: PCP Internal Medicine; Visit Provider Orthopaedic Surgery Foot and Ankle Surgery
PROC: 0SSF04Z Reposition Right Ankle Joint with Internal Fixation Device, Open Approach (ICD-10-PCS; CPT 27792; principal; 2019-07-11 16:00)
DX: S82.891A Other fracture of right lower leg, initial encounter for closed fracture (principal); S82.391A Other fracture of lower end of right tibia, initial encounter for closed fracture; S93.431A Sprain of tibiofibular ligament of right ankle, initial encounter; Y93.02 Activity, running; G89.18 Other acute postprocedural pain; I48.91 Unspecified atrial fibrillation; G47.33 Obstructive sleep apnea (adult) (pediatric); I25.10 Atherosclerotic heart disease of native coronary artery without angina pectoris; E78.5 Hyperlipidemia, unspecified; I42.9 Cardiomyopathy, unspecified
CPT/HCPCS: 27792; 27829; 64450; 73610; 76000; J0690; J2250; J2405; J2704; J3010

== ENCOUNTER → 2020-03-19 13:37 | Outpatient (CLI) | payer MEDICARE, OTHER, SELFPAY ==
--- NOTE | 2020-03-19 | DI.MRI.S_ITS ---
PROCEDURE: MR KNEE RT WO CON INDICATIONS: Other tear of medial meniscus, current injury TECHNIQUE: Noncontrast sagittal PD fast spin echo and T2 fast spin echo with fat saturation, sagittal 3-D FLASH with fat saturation; coronal T1 spin echo and PD fast spin echo with fat saturation, and axial PD fast spin echo with fat saturation through the knee. COMPARISON: None. FINDINGS: Image quality: Excellent. Menisci: Oblique tear involving body and posterior horn of medial meniscus is seen extending to the inferior articulating surface. There is no evidence of focal lateral meniscal tear. The meniscal root ligaments appear intact. Cruciate ligaments: The anterior and posterior cruciate ligaments appear intact. Medial structures: Low to moderate grade MCL sprain is noted. The posterior oblique ligament, semimembranosus tendon insertions, oblique popliteal ligament, and meniscocapsular junction appear intact. Visualized portions of the pes anserinus tendons appear normal. No abnormal bursal fluid. Lateral structures: The lateral collateral ligament, long and short heads of the biceps femoris tendon appear intact. The popliteus tendon appears normal; the popliteofibular ligament appears intact. The posterosuperior and anteroinferior popliteomeniscal fascicles appear intact. The arcuate and fabellofibular ligaments appear intact, on either side of the lateral inferior geniculate artery. Iliotibial band appears normal. Anterior structures: Patellar tendon is intact. Thickened distal quadriceps tendon at its superior patellar insertion is seen consistent with tendinosis.. Patellar alignment is normal. No femoral trochlear dysplasia or ventral trochlear prominence. No edema in the infrapatellar fat pad. Bones and cartilage: Marrow edema involving anteromedial periphery of proximal tibial shaft is seen without discrete fracture line. No other area of abnormal marrow signal. Mild to moderate tricompartmental osteoarthritis and chondromalacia is seen more prominent in medial femoral tibial compartment. Joint space: There is small amount of joint fluid. Small popliteal cyst is seen.. Normal appearing synovial plicae are incidentally noted. IMPRESSION: 1. Oblique tear involving body and posterior horn of medial meniscus extending to the inferior articulating surface. No evidence of focal lateral meniscal tear. 2. Low-grade MCL sprain. Cruciate ligaments are intact. 3. Mild to moderate tricompartmental osteoarthritis and chondromalacia more prominent in medial femoral tibial compartment. Bony contusion involving antral medial periphery of proximal tibia. No fracture or dislocation. Small amount of joint fluid and small popliteal cyst. 4. Suggestion of distal quadriceps tendinosis at its superior patellar insertion. Dictated by: Kennedy Gray M.D. on 03/19/2020 at 15:19 Approved by: Kennedy Gray M.D. on 03/19/2020 at 15:26
== END ==
PROVIDERS: PCP Internal Medicine; Referring Provider Internal Medicine; Visit Provider Orthopaedic Surgery
DX: S83.241A Other tear of medial meniscus, current injury, right knee, initial encounter (principal); S83.411A Sprain of medial collateral ligament of right knee, initial encounter; M17.11 Unilateral primary osteoarthritis, right knee; M94.261 Chondromalacia, right knee; M71.21 Synovial cyst of popliteal space [Baker], right knee
CPT/HCPCS: 73721

== ENCOUNTER 2020-05-09 08:57 | Emergency (ER) | payer MEDICARE, OTHER, SELFPAY ==
[2020-05-09 09:08] VITALS: BP 113/77; PULSE 82; RESP 21; TEMP 37.1; O2SAT 99; BMI 30.5
--- NOTE | 2020-05-09 09:14 | DI.RAD.S_ITS ---
PROCEDURE: XR CHEST 1V INDICATIONS: SOB TECHNIQUE: One view of the chest was acquired. COMPARISON: [facility], CR, XR CHEST 1V, 10/04/2018, 18:35. FINDINGS: Surgical changes and devices: Sternotomy wires are present. A left atrial appendage clip is seen. Postsurgical changes are seen from left shoulder arthroplasty. Lungs and pleura: Lungs are clear. No pleural effusions or pneumothorax. Mediastinum: Mediastinal contours appear normal. Heart size is mildly enlarged in stable. Bones and chest wall: No suspicious bony lesions. Overlying soft tissues appear unremarkable. Degenerative changes are seen in the right shoulder. IMPRESSION: No acute pulmonary consolidation. Stable mild cardiomegaly. Dictated by: Bala Sams M.D. on 05/09/2020 at 9:53 Approved by: Bala Sams M.D. on 05/09/2020 at 9:55
[2020-05-09 09:16] VITALS: PULSE 70; RESP 18; O2SAT 100
[2020-05-09 09:28] LABS: Add Manual Diff / Slide Review NO; Basophils Absolute Auto 100 /uL (0-100); Eosinophils Absolute Auto 200 /uL (0-450); Eosinophils Percent Auto 3.4 % (2-4); Hematocrit 43.9 % (41-53); Hemoglobin 14.8 g/dL (13.5-17.5); Lymphocytes Absolute Auto 1100 /uL (1100-4500); Lymphocytes Percent Auto 15.4 % (25-40); Mean Corpuscular HGB Conc 33.7 % (30-36); Mean Corpuscular Hemoglobin 29.2 PG (26-34); Mean Corpuscular Volume 86.6 fL (80-100); Monocytes Absolute Auto 800 /uL (0-900); Monocytes Percent Auto 11.2 % (3-14); Neutrophils Absolute Auto 4900 /uL (1500-7000); Platelet Count 176 X10^3/uL (150-400); Red Blood Cell Count 5.06 X10^6/uL (4.5-5.9); Red Cell Distribution Width 13.6 % (11.6-14.8); White Blood Cell Count 7.1 X10^3/uL (4.5-11.0)
[2020-05-09 09:29] LABS: INR 1.1 (0.9-1.3); Prothrombin Time 13.2 SECONDS (10.1-12.7)
[2020-05-09 09:30] VITALS: BP 108/71; PULSE 67; RESP 17; O2SAT 99
[2020-05-09 09:32] LABS: PTT Partial Thromboplastin Tim 31 SECONDS (26.4-36.2)
[2020-05-09 09:34] LABS: BUN Creatinine Ratio 34.6 (6-22); Blood Urea Nitrogen 27 mg/dL (9-20); Calcium 9.8 mg/dL (8.4-10.2); Carbon Dioxide 29 mmol/L (22-32); Chloride 101 mmol/L (98-107); Creatine Kinase 81 U/L (55-170); Estimated Glomerular Filt Rate > 60.0 mL/min (>60); Glucose 91 mg/dL (80-110); HEMOLYSIS 17 (0-50); Lipase 70 U/L (23-300); Potassium 4.3 mmol/L (3.4-5.1); Sodium 137 mmol/L (137-145)
[2020-05-09 09:46] LABS: NT-proBNP (BNP-Adult 18+) 139 pg/mL (<125); Troponin I < 0.012 ng/mL (0.01-0.034)
[2020-05-09 10:00] VITALS: PULSE 83; RESP 19; O2SAT 97
--- NOTE | 2020-05-09 10:04 | ED_ITS ---
HPI - Arrhythmia/Palpitations General Chief Complaint: Arrhythmia/Palpitations Stated Complaint: a-fib/dyspnea x2 weeks Time Seen by Provider: 05/09/20 09:13 Source: patient Mode of arrival: Wheelchair Limitations: no limitations History of Present Illness HPI narrative: Patient is a 70-year-old male. Known history of atrial fibrillation. He states he is in persistent AFib. He has been in this for the past several weeks. He has seen a resource recovery specialist. He was instructed that he should start taking a anticoagulant and then schedule a ANNIE and then a cardioversion. He is yet to start the anticoagulant. He states that 2 weeks ago he started having some shortness of breath. That has not changed today. He states he is here today because he was concerned he was not on anticoagulation. He states he attempted multiple times to contact the resource recovery specialist in the resource recovery specialist office and got no return of call. He then was called by the nurse stating that they needed to talk with him before starting any anticoagulation. He has been on Eliquis in the past. He states he has also been on Coumadin in the past. He cannot take the Eliquis because it caused him some visual disturbances that. When he stopped the medication. He is only here to get a prescription for the anticoagulation Related Data Home Medications Medication Instructions Recorded Confirmed magnesium oxide 500 mg PO BID #0 12/27/12 07/11/19 dofetilide [Tikosyn] 500 mcg PO BID #0 01/04/13 07/11/19 acetaminophen [Tylenol Extra 1,000 mg PO Q6HP PRN #0 09/12/16 07/08/19 Strength] pravastatin 20 mg PO DAILY 07/07/19 07/11/19 glucosamine sulfate [Glucosamine] 500 mg PO BID 07/11/19 07/11/19 Previous Rx's Medication Instructions Recorded aspirin 325 mg PO BID #60 tab 07/11/19 oxycodone 5 - 10 mg PO Q4H PRN #50 tab 07/11/19 rivaroxaban [Xarelto] 20 mg PO QPM #30 tab 05/09/20 Allergies Allergy/AdvReac Type Severity Reaction Status Date / Time amiodarone [AMIODARONE] Allergy Severe THYROID Verified 07/07/19 12:17 STORM etomidate [ETOMIDATE] AdvReac Severe uncontrollable Verified 07/07/19 12:17 shaking tramadol AdvReac Intermediate Verified 07/11/19 14:15 Review of Systems Constitutional Constitutional: Denies fever(s) and Denies headache(s) ENT Ears, Nose, Mouth, and Throat: Denies headache(s) and Denies sore throat Cardiovascular Cardiovascular: Denies chest pain, Reports irregular heart rhythm and Reports dyspnea Respiratory Respiratory: Denies cough and Reports dyspnea Gastrointestinal Gastrointestinal: Denies abdominal pain and Denies vomiting Musculoskeletal Musculoskeletal: Denies arthralgias and Denies myalgias Integumentary/Breasts Skin/Breast: Denies rash Neurologic Neurologic: Denies behavioral changes and Denies headache(s) Psychiatric Psychiatric: Denies behavioral changes Hematologic/Lymphatic Hematologic/Lymphatic: Denies easy bleeding and Denies easy bruising Patient History Medical History A-fib (Acute) Ankle fracture, right (Acute 07/07/19) Arthritis (Acute) CAD (coronary artery disease) (Acute) Cardiomyopathy (Acute) GERD (gastroesophageal reflux disease) (Acute) Hearing impaired (Acute) HLD (hyperlipidemia) (Acute) Hx of coronary angiogram (Acute 11/29/18) Low back pain (Acute) MARTÍN treated with BiPAP (Acute) Osteoarthritis (Acute) PAC (premature atrial contraction) (Acute) PAF (paroxysmal atrial fibrillation) (Acute) Scoliosis (Acute) SVT (supraventricular tachycardia) (Acute) Surgical History History of arthroplasty of right hip (Acute ~12/2013) History of bilateral carpal tunnel release (Acute ~1977) History of colonoscopy (Acute) Hx of aortic valve repair (Acute) Hx of bilateral inguinal hernia repair (Acute 04/23/17) Hx of hemorrhoidectomy (Acute ~12/2016) Hx of maze procedure (Acute) Hx of total hip arthroplasty (Acute) Social History household members: spouse Smoking Status: Never smoker Smoking Status: Never smoker alcohol intake frequency: holidays/special occasions only Substance Use Type: does not use Exam Initial Vital Signs Initial Vital Signs: Vital Signs Temperature 98.7 F 05/09/20 09:08 Pulse Rate 82 05/09/20 09:08 Respiratory Rate 21 05/09/20 09:08 Blood Pressure 113/77 05/09/20 09:08 Pulse Oximetry 99 05/09/20 09:08 Const General: cooperative and comfortable Limitations: mental status not altered HENMT Head: normal to inspection and normocephalic Resp Effort & Inspection: normal respiratory effort Auscultation: clear to auscultation bilaterally Cardio Rate: regular rate Rhythm: abnormal rhythm Pulses: radial pulses present Skin Lesions: no lesions Rashes: no rashes Neuro General: patient alert and patient awake Cognition: normal cognition Speech: speech normal Extrem General: normal to inspection and capillary refill normal Psych Appearance: grossly normal and well kempt Scores GCS Maame coma scale eye opening: Spontaneous Maame coma scale verbal response: Orientated [place] coma scale motor response: Obey commands Maame coma scale total score: 15 Course Orders Ordered: ED Orders 05/09/20 09:10 Basic Metabolic Panel Stat Complete Blood Count AUTO DIFF Stat Lipase Stat NT-proBNP (BNP-Adult 18+) Stat Partial Thromboplastin Time Stat Prothrombin Time INR Stat Troponin & CK Cardiac Panel Stat 05/09/20 09:14 XR chest 1V Stat EKG-12 Lead Stat Vital Signs Vital signs: Vital Signs - 8 hr 05/09/20 09:08 05/09/20 09:16 05/09/20 09:30 Temperature 98.7 F Pulse Rate 82 70 67 Respiratory Rate 21 18 17 Blood Pressure 113/77 108/71 Pulse Oximetry 99 100 99 05/09/20 10:00 05/09/20 10:08 05/09/20 10:30 Temperature Pulse Rate 83 83 82 Respiratory Rate 19 22 20 Blood Pressure 114/78 101/78 Pulse Oximetry 97 99 MDM - Arrhythmia/Palpitations Lab Data Attestation: I reviewed the patient's lab results. Result diagrams: 05/09/20 09:10 05/09/20 09:10 Labs: Lab Results 05/09/20 05/09/20 05/09/20 Range/Units 09:10 09:10 09:10 WBC 7.1 (4.5-11.0) X10^3/uL RBC 5.06 (4.5-5.9) X10^6/uL Hgb 14.8 (13.5-17.5) g/dL Hct 43.9 (41-53) % MCV 86.6 (80-100) fL MCH 29.2 (26-34) PG MCHC 33.7 (30-36) % RDW 13.6 (11.6-14.8) % Plt Count 176 (150-400) X10^3/uL Neut % (Auto) 69.0 (50-75) % Lymph % (Auto) 15.4 L (25-40) % Woodson % (Auto) 11.2 (3-14) % Eos % (Auto) 3.4 (2-4) % Baso % (Auto) 1.0 (0-2) % Neut # (Auto) 4900 (0685-0421) /uL Lymph # (Auto) 1100 (2476-4399) /uL Woodson # (Auto) 800 (0-900) /uL Eos # (Auto) 200 (0-450) /uL Baso # (Auto) 100 (0-100) /uL PT 13.2 H (10.1-12.7) SECONDS INR 1.1 (0.9-1.3) APTT 31 (26.4-36.2) SECONDS Sodium 137 (137-145) mmol/L Potassium 4.3 (3.4-5.1) mmol/L Chloride 101 (98-107) mmol/L Carbon Dioxide 29 (22-32) mmol/L BUN 27 H (9-20) mg/dL Creatinine 0.78 (0.66-1.25) mg/dL Estimated GFR > 60.0 (>60) mL/min BUN/Creatinine Ratio 34.6 H (6-22) Glucose 91 (80-110) mg/dL Calcium 9.8 (8.4-10.2) mg/dL Total Creatine Kinase 81 (55-170) U/L CK-MB (CK-2) TNP CK-MB (CK-2) Rel Index TNP Troponin I < 0.012 (0.01-0.034) ng/mL NT-Pro-B Natriuret Pep 139 H (<125) pg/mL Lipase 70 (23-300) U/L Imaging Data Chest x-ray: Radiologist's Impresson: [address] [address] XRay Report Signed Patient: Trevor Simpson FAINAR#: [id number] : 8Acct:[id number] Age/Sex: 70 / MDate of Service: 05/09/20 Loc: ED Accession Number: [id number] Procedure: XR chest 1V Ordering Provider: Raffaele Chisholm D.O. PROCEDURE: XR CHEST 1V INDICATIONS: SOB TECHNIQUE: One view of the chest was acquired. COMPARISON: [facility], CR, XR CHEST 1V, 10/04/2018, 18:35. FINDINGS: Surgical changes and devices: Sternotomy wires are present. A left atrial appendage clip is seen. Postsurgical changes are seen from left shoulder arthroplasty. Lungs and pleura: Lungs are clear. No pleural effusions or pneumothorax. Mediastinum: Mediastinal contours appear normal. Heart size is mildly enlarged in stable. Bones and chest wall: No suspicious bony lesions. Overlying soft tissues appear unremarkable. Degenerative changes are seen in the right shoulder. IMPRESSION: No acute pulmonary consolidation. Stable mild cardiomegaly. Dictated by: Bala Sams M.D. on 05/09/2020 at 9:53 Approved by: Bala Sams M.D. on 05/09/2020 at 9:55 ECG Data Attestation: I personally reviewed and interpreted this ECG as follows: Prior ECG tracings: not available for review Interpretation: Atrial fibrillation Ventricular rate 84 MDM Narrative Medical decision making narrative: We did discuss Coumadin and the concerns with this with regard to bridging with Lovenox. He would like to not take Eliquis. Will send him home with a prescription for Xarelto. Due to the concern that maybe his resource recovery specialist has already called in a prescription I will print off a prescription for him that he can take to his pharmacy. He was given a copy of all of his labs and EKGs from today. He is going to contact his resource recovery specialist for follow-up. I feel we can hold on further workup for now. He expressed un derstanding and agreement. Discharge Plan Departure Patient Disposition: Home Clinical Impression: Atrial fibrillation Qualifiers: Atrial fibrillation type: unspecified Qualified Code(s): I48.91 - Unspecified atrial fibrillation Discharge Date/Time: 05/09/20 10:35 Instructions: DI for Atrial Fibrillation Activity Restrictions/Additional Instructions: Recommend that you take the anticoagulation as directed. Contact your c ardiologist for follow-up. Return to the emergency department for any new or worsening symptoms Prescriptions: New Xarelto 20 mg tablet 20 mg PO QPM Qty: 30 RF: 0 No Action magnesium oxide 500 MG tablet 500 mg PO BID Qty: 0 RF: 0 dofetilide [Tikosyn] 500 MCG capsule 500 mcg PO BID Qty: 0 RF: 0 acetaminophen [Tylenol Extra Strength] 500 MG tablet 1,000 mg PO Q6HP PRN (Reason: Pain) Qty: 0 RF: 0 pravastatin 40 mg tablet 20 mg PO DAILY RF: 0 glucosamine sulfate [Glucosamine] 500 mg Tablet 500 mg PO BID RF: 0 oxycodone 5 mg tablet 5 - 10 mg PO Q4H PRN (Reason: pain) Qty: 50 RF: 0 aspirin 325 mg tablet 325 mg PO BID Qty: 60 RF: 0 Referrals: Cabrera Zafar MD [Primary Care Provider] -
[2020-05-09 10:08] VITALS: BP 114/78; PULSE 83; RESP 22; O2SAT 99
[2020-05-09 10:30] VITALS: BP 101/78; PULSE 82; RESP 20
== END 2020-05-09 10:35 | disposition home or self-care (01) ==
PROVIDERS: Emergency Provider Emergency Medicine; PCP Internal Medicine
DX: I48.91 Unspecified atrial fibrillation (principal); R06.02 Shortness of breath
CPT/HCPCS: 36415; 71045; 80048; 82550; 83690; 83880; 84484; 85025; 85610; 85730; 93005; 99283; 99284

== ENCOUNTER → 2021-11-29 12:47 | Outpatient (CLI) | payer MEDICARE, OTHER, SELFPAY ==
--- NOTE | 2021-11-29 12:51 | DI.MRI.S_ITS ---
PROCEDURE: MR LUMBAR SPINE WO CON INDICATIONS: Radiculopathy, lumbar region TECHNIQUE: Noncontrast sagittal T1 spin echo and T2 fast echo, sagittal STIR, and T2 fast spin echo through the lumbar spine. In cases with scoliosis, additional coronal T2 fast spin echo may be performed. COMPARISON: [facility], CT, PELVIS WITH CONTRAST, 08/27/2016, 9:13. FINDINGS: Image quality: Excellent. Alignment and Curvature: There is prominent leftward scoliotic curvature apex at L2-3. There is approximate 4 mm retrolisthesis of L4 on L5. Bone Marrow: Marrow is of normal overall signal. [id number] reactive endplate changes are present at L1-L2. No acute vertebral body compression fractures. Spinal Cord: Conus medullaris terminates at the L1 level. Visualized cord demonstrates normal signal and size. Paraspinous Soft Tissues: No paravertebral masses. Moderate to severe desiccation is present throughout the lumbar spine. T12-L1: Mild disc bulge without spinal stenosis. Moderate to severe right and mild left foraminal narrowing with facet and ligamentum flavum hypertrophy. L1-L2: Mild disc bulge with mild spinal stenosis. Severe right and moderate left foraminal narrowing with facet and ligamentum flavum hypertrophy. Nerve root compression is noted on the right. L2-L3: Mild disc bulge with moderate to severe spinal stenosis. There is severe right and moderate to severe left foraminal narrowing with facet and ligamentum flavum hypertrophy. Nerve root compression is noted on the left. L3-L4: Mild disc bulge with moderate spinal stenosis. Severe right and moderate to severe left foraminal narrowing with facet and ligamentum flavum hypertrophy. Nerve root compression is noted on the right. L4-L5: Mild disc bulge with moderate to severe spinal stenosis. Severe left and minimal right foraminal narrowing with nerve root compression noted on the left. Facet hypertrophy is present. L5-S1: Mild disc bulge without spinal stenosis. Severe left and moderate right foraminal narrowing with mild nerve root compression identified on the left. Facet hypertrophy is present. There is appearance of pars defect at this level. IMPRESSION: Prominent scoliotic curvature. Multilevel spinal stenosis secondary scoliotic curvature as well as affective facet/ligamentum flavum arthropathy. Spinal stenosis is most severe at L2-3 through L4-5. Multilevel moderate to severe foraminal narrowing secondary scoliotic curvature as well as facet/ligamentum flavum arthropathy. Dictated by: Gail Astorga M.D. on 11/29/2021 at 17:47 Approved by: Gail Astorga M.D. on 11/29/2021 at 18:03
== END ==
PROVIDERS: PCP Internal Medicine; Referring Provider Orthopaedic Surgery; Visit Provider Orthopaedic Surgery
DX: M47.26 Other spondylosis with radiculopathy, lumbar region (principal); M48.061 Spinal stenosis, lumbar region without neurogenic claudication; M41.80 Other forms of scoliosis, site unspecified
CPT/HCPCS: 72148

== ENCOUNTER → 2021-12-06 09:35 | Outpatient (CLI) | payer MEDICARE, OTHER, SELFPAY ==
--- NOTE | 2021-12-06 | DI.NM.S_ITS ---
PROCEDURE: NM BONE 3 PHASE RADIOPHARMACEUTICAL: 21.2 mCi Tc-99m MDP IV. INDICATIONS: RIGHT HIP PAIN TECHNIQUE: Multiple bone scintigrams were obtained after intravenous injection of Tc-99m MDP, including flow, blood pool, and delayed images centered to the region of interest. COMPARISON: [facility], CR, XR PELVIS WITH LATERAL HIP RIGHT, 11/28/2021, 13:18. FINDINGS: Immediate flow images demonstrate no areas of increased radiotracer to suggest hyperemia. Intermediate blood pool images demonstrate no areas of increased radiotracer uptake. Delayed images are limited secondary to large amount of radiotracer in the urinary bladder which patient was unable to clear as well as radiotracer labeled urine contamination of the left thigh. Areas of photopenia noted in the hips bilaterally compatible with presence of arthroplasty prostheses. No definite increased uptake identified adjacent to the prostheses to suggest loosening or infection. IMPRESSION: Diagnostic sensitivity of study for loosening or infection of hip prostheses is limited secondary to large amount of radiotracer in the urinary bladder which could not be cleared by the patient as well as radiotracer labeled urine contamination of the left thigh soft tissues. No definite scintigraphic evidence of hip arthroplasty prosthesis loosening or infection within limitations of the study. If there is continued clinical concern for prosthesis loosening consider repeating delayed phase bone scan with benefit of Yanez catheter. Dictated by: Evelin Francis MD, PhD on 12/06/2021 at 14:47 Approved by: Evelin Francis MD, PhD on 12/06/2021 at 14:51
== END ==
PROVIDERS: PCP Internal Medicine; Referring Provider Student in an Organized Health Care Education/Training Program; Visit Provider Student in an Organized Health Care Education/Training Program
DX: M25.551 Pain in right hip (principal)
CPT/HCPCS: 78315; A9503

== ENCOUNTER → 2023-01-20 09:52 | Outpatient (CLI) | payer MEDICARE, OTHER, SELFPAY ==
--- NOTE | 2023-01-20 | DI.NM.S_ITS ---
PROCEDURE: NM KEVIN PERF SPECT R&S PHARM Rest and pharmacological stress myocardial perfusion SPECT with gated imaging and ejection fraction RADIOPHARMACEUTICAL: 11 mCi Tc-99m tetrafosmin IV at rest and 24.8 mCi Tc-99m tetrafosmin IV at peak effect of pharmacological stress. [id number] was performed. INDICATIONS: Shortness of breath TECHNIQUE: Radiopharmaceutical was injected at peak stress test, and also at rest. SPECT images were obtained. SPECT myocardial perfusion images were displayed in short axis, horizontal long axis, and vertical long axis views. Gated images were reviewed using Genelux software. COMPARISON: None. CARDIAC STRESS: Patient exercised for 8 minutes reaching 82% of maximum predicted heart rate. As target heart rate was not reached, switched to switch to a pharmacologic stress test that was performed under the supervision of an attending staff, using an infusion of lexiscan. Hemodynamic data: There is normal blood pressure and heart rate response to pharmacologic stress. Symptoms: The patient denied anginal chest pain. Aminophylline: none EKG: Resting ECG showed mild horizontal ST depressions in the inferior and anterolateral leads that worsened to moderate with exercise and during recovery. Frequent PVCs present during the exercise and recovery. FINDINGS: Raw data: There is good myocardial uptake of radiotracer. No significant motion artifacts. Left ventricle function: Gated images demonstrate normal left ventricular wall thickening. No segmental wall motion abnormalities. No transient ischemic dilation; TID is 0.91 (normal less than 1.3). Left ventricle resting end diastolic volume is 105 mL. Left ventricle stress ejection fraction is 74%; normal range is above 45%. Myocardial perfusion: There is normal distribution of activity in the right and left ventricular myocardium. No fixed or reversible perfusion defects. IMPRESSION: Low risk, normal pharmaceutical nuclear stress test. 1) No perfusion evidence of ischemia or infarction. 2) Normal left ventricular size, wall motion, and systolic function (EF post stress 74%). 3) No angina during the study. 4) Mild horizontal ST depressions in the inferior and anterolateral leads that worsened to moderate with exercise and during recovery. Frequent PVCs present during the exercise and recovery. 5) Reduced exercise tolerance (7.0METs, ERICKA +43%). Since only 82% of maximum predicted heart rate was achieved, study was switched to lexiscan. 6) No prior nuclear stress test available for comparison. Dictated by: Regina Sibley MD on 01/21/2023 at 13:22 Approved by: Regina Sibley MD on 01/21/2023 at 13:27
== END ==
PROVIDERS: PCP Internal Medicine; Referring Provider Nurse Practitioner; Visit Provider Nurse Practitioner
DX: R06.02 Shortness of breath (principal)
CPT/HCPCS: 78452; 93017; A9502; J2785

== ENCOUNTER 2023-04-16 08:06 | Emergency (ER) | payer MEDICARE, OTHER, SELFPAY ==
[2023-04-16 08:17] VITALS: BP 110/86; PULSE 78; RESP 14; TEMP 36.2; O2SAT 99; BMI 31.0
--- NOTE | 2023-04-16 08:18 | DI.RAD.S_ITS ---
PROCEDURE: XR CERVICAL SPINE 2V OR 3V INDICATIONS: L paraspinal pain after fall TECHNIQUE: 3 view(s) of the cervical spine were acquired. COMPARISON: None. FINDINGS: Bones: No fractures or dislocations to the T1 level. Degenerative endplate changes, loss of disc height and bilateral facet hypertrophic changes are noted throughout cervical spine. The lateral masses of C1 appear intact on the odontoid view. No suspicious bony lesions. Soft tissues: No prevertebral soft tissue swelling. IMPRESSION: No gross acute cervical spine fracture or dislocation. Degenerative disc disease throughout cervical spine. Dictated by: Kennedy Gray M.D. on 04/16/2023 at 8:56 Approved by: Kennedy Gray M.D. on 04/16/2023 at 8:58
--- NOTE | 2023-04-16 08:18 | DI.RAD.S_ITS ---
PROCEDURE: XR SHOULDER LT MIN 2V INDICATIONS: pain after fall TECHNIQUE: 3 views of the shoulder were acquired. COMPARISON: [facility], , SHOULDER MINIMUM 2 VIEW LEFT, 05/03/2007, 9:50. FINDINGS: Bones: Patient is status post left shoulder arthroplasty. Shoulder alignment is anatomic. No gross hardware loosening or failure. No gross acute periprosthetic fracture. No suspicious bony lesions. Visualized ribs appear intact. Soft tissues: No suspicious soft tissue calcifications. IMPRESSION: Prior left shoulder arthroplasty with anatomic shoulder alignment. Moderate acromioclavicular joint osteoarthritic changes are seen. No acute fracture or dislocation. No gross hardware and signing or failure. Dictated by: Kennedy Gray M.D. on 04/16/2023 at 8:58 Approved by: Kennedy Gray M.D. on 04/16/2023 at 8:59
--- NOTE | 2023-04-16 08:19 | ED.GENADULT ---
HPI - General Adult General Chief complaint: Trauma Stated complaint: GLF Thursday Time Seen by Provider: 04/16/23 08:18 Source: patient Mode of arrival: Ambulatory Limitations: no limitations History of Present Illness HPI narrative: 73-year-old male. Not on anticoagulation who is here for evaluation of left upper shoulder and left paraspinal neck discomfort since a fall approximately 5 days ago. He stated that he tripped over his dog and fell. As he was falling he tried to rotate in the landed on his left shoulder. He did not hit his head. Since that time he is had pain in the upper left shoulder and the left paraspinal neck discomfort and across his neck. He is certain movements that hurts. When he is just sitting he has not a lot of discomfort. He reports no other injuries from the event. Related Data Home Medications Medication Instructions Recorded Confirmed magnesium oxide 500 mg tablet 500 mg PO BID ##0 12/27/12 07/11/19 dofetilide 500 mcg capsule 500 mcg PO BID ##0 01/04/13 07/11/19 (Tikosyn) acetaminophen 500 mg tablet 1,000 mg PO Q6HP PRN Pain ##0 09/12/16 07/08/19 (Tylenol Extra Strength) pravastatin 40 mg tablet 20 mg PO DAILY 07/07/19 07/11/19 glucosamine sulfate 500 mg tablet 500 mg PO BID 07/11/19 07/11/19 (Glucosamine) Previous Rx's Medication Instructions Recorded aspirin 325 mg tablet 325 mg PO BID #60 tabs 07/11/19 oxycodone 5 mg tablet 5 - 10 mg PO Q4H PRN pain #50 tabs 07/11/19 rivaroxaban 20 mg tablet (Xarelto) 20 mg PO QPM #30 tabs 05/09/20 Allergies Allergy/AdvReac Type Severity Reaction Status Date / Time amiodarone [AMIODARONE] Allergy Severe THYROID Verified 07/07/19 12:17 STORM etomidate [ETOMIDATE] AdvReac Severe uncontrollable Verified 07/07/19 12:17 shaking tramadol AdvReac Intermediate Verified 07/11/19 14:15 Review of Systems Constitutional Constitutional: Reports system reviewed and no additional complaints, except as documented Cardiovascular Cardiovascular: Reports system reviewed and no additional complaints, except as documented Musculoskeletal Musculoskeletal: Reports system reviewed and no additional complaints, except as documented Integumentary/Breasts Skin/Breast: Reports system reviewed and no additional complaints, except as documented Neurologic Neurologic: Reports system reviewed and no additional complaints, except as documented Hematologic/Lymphatic On Anticoagulants: No Patient History Medical History (Updated 04/16/23 @ 08:43 by Raffaele Chisholm DO) A-fib Ankle fracture, right (07/07/19) Arthritis CAD (coronary artery disease) Cardiomyopathy GERD (gastroesophageal reflux disease) Hearing impaired HLD (hyperlipidemia) Hx of coronary angiogram (11/29/18) Low back pain MARTÍN treated with BiPAP Osteoarthritis PAC (premature atrial contraction) PAF (paroxysmal atrial fibrillation) Scoliosis SVT (supraventricular tachycardia) Surgical History History of arthroplasty of right hip (~12/2013) History of bilateral carpal tunnel release (~1977) History of colonoscopy Hx of aortic valve repair Hx of bilateral inguinal hernia repair (04/23/17) Hx of hemorrhoidectomy (~12/2016) Hx of maze procedure Hx of total hip arthroplasty Social History household members: spouse Smoking Status: Never smoker Smoking Status: Never smoker alcohol intake frequency: holidays/special occasions only Substance Use Type: does not use Exam Initial Vital Signs Initial Vital Signs: Vital Signs Temperature 97.1 F L 04/16/23 08:17 Pulse Rate 78 04/16/23 08:17 Respiratory Rate 14 04/16/23 08:17 Blood Pressure 110/86 04/16/23 08:17 Pulse Oximetry 99 04/16/23 08:17 Oxygen Delivery Method Room Air 04/16/23 08:17 Const General: cooperative, comfortable and No ill appearing [facility] Head: normal to inspection and normocephalic Resp Effort & Inspection: normal respiratory effort Back/Spine/Pelvis Cervical Spine: cervical muscular tenderness, pain with cervical ROM and No cervical spinal tenderness Thoracic/Lumbar Spine: No paraspinal tenderness, No thoracic spinal tenderness and No lumbar spinal tenderness Skin General: no rashes or lesions noted Neuro General: patient alert, patient awake and moves all extremities Extrem Other: Limited range of motion specifically with abduction to the left shoulder. Has discomfort over the upper shoulder musculature. No tenderness along the clavicles. His right upper extremity is unremarkable. Scores GCS Maame coma scale eye opening: Spontaneous [place] coma scale verbal response: Orientated [place] coma scale motor response: Obey commands [place] coma scale total score: 15 Nexus Score for C-Spine Focal Neurologic deficit present: No Midline spinal tenderness present: No Altered level of conciousness present: No Intoxication present: No Distracting Injury Present: No Nexus Criteria for C-spine: 0 Course Orders Ordered: ED Orders 04/16/23 08:18 XR cervical spine 2V or 3V Stat XR shoulder LT min 2V Stat Vital Signs Vital signs: Vital Signs - 8 hr 04/16/23 08:17 Temperature 97.1 F L Pulse Rate 78 Respiratory Rate 14 Blood Pressure 110/86 Pulse Oximetry 99 Oxygen Delivery Method Room Air Medical Decision Making Imaging Data cervical x-ray: Radiologist's Impression: PROCEDURE:? XR CERVICAL SPINE 2V OR 3V ? INDICATIONS:? L paraspinal pain after fall ? TECHNIQUE:? 3 view(s) of the cervical spine were acquired.? ? COMPARISON:? None. ? FINDINGS:? ? Bones:? No fractures or dislocations to the T1 level.? Degenerative endplate changes, loss of disc height and bilateral facet hypertrophic changes are noted throughout cervical spine.? The lateral masses of C1 appear intact on the odontoid view.? No suspicious bony lesions.? ? Soft tissues:? No prevertebral soft tissue swelling.? ? ? IMPRESSION:? No gross acute cervical spine fracture or dislocation.? Degenerative disc disease throughout cervical spine. Extremity x-ray #2: Radiologist's Impression: PROCEDURE:? XR SHOULDER LT MIN 2V ? INDICATIONS:? pain after fall ? TECHNIQUE:? 3 views of the shoulder were acquired.? ? COMPARISON:? [facility], , SHOULDER MINIMUM 2 VIEW LEFT, 05/03/2007, 9:50. ? FINDINGS:? ? Bones:? Patient is status post left shoulder arthroplasty.? Shoulder alignment is anatomic.? No gross hardware loosening or failure.? No gross acute periprosthetic fracture.? No suspicious bony lesions.? Visualized ribs appear intact.? ? Soft tissues:? No suspicious soft tissue calcifications.? ? IMPRESSION:? Prior left shoulder arthroplasty with anatomic shoulder alignment.? Moderate acromioclavicular joint osteoarthritic changes are seen.? No acute fracture or dislocation.? No gross hardware and signing or failure.? MDM Narrative Medical decision making narrative: Patient states his symptoms have been improving since he fell almost 1 week ago. He does take Tylenol at home. He also has Robaxin that he takes and he thinks this does help somewhat. We discussed other conservative measures he can try at home such as heat/ice and also massage. X-ray show no acute pathology. No indication for further radiologic studies. He was given return precautions and follow-up instructions. He expressed understanding and agreement. Discharge Plan Departure Patient Disposition: Home Clinical Impression: Cervical muscle strain, Left shoulder strain Instructions: DI for Cervical Muscle Strain Activity Restrictions/Additional Instructions: There were no broken bones noted on the x-rays. Recommend that you continue with conservative measures such as massage and light stretching. Muscle relaxers maybe helpful as well. Please take them as directed. Return to the emergency department for new symptoms. Prescriptions: No Action magnesium oxide 500 MG tablet 500 mg PO BID Qty: 0 dofetilide [Tikosyn] 500 MCG capsule 500 mcg PO BID Qty: 0 acetaminophen [Tylenol Extra Strength] 500 MG tablet 1,000 mg PO Q6HP PRN (Reason: Pain) Qty: 0 pravastatin 40 mg tablet 20 mg PO DAILY glucosamine sulfate [Glucosamine] 500 mg Tablet 500 mg PO BID oxycodone 5 mg tablet 5 - 10 mg PO Q4H PRN (Reason: pain) Qty: 50 0RF Rx Instructions: exempt postop aspirin 325 mg tablet 325 mg PO BID Qty: 60 0RF Xarelto 20 mg tablet 20 mg PO QPM Qty: 30 0RF Rx Instructions: must administer with evening meal Referrals: Cabrera Zafar MD [Primary Care Provider] - Stand Alone Forms: Patient Portal/API, Work Release Note
== END 2023-04-16 09:19 | disposition home or self-care (01) ==
PROVIDERS: Emergency Provider Emergency Medicine; PCP Internal Medicine
DX: S16.1XXA Strain of muscle, fascia and tendon at neck level, initial encounter (principal); S46.912A Strain of unspecified muscle, fascia and tendon at shoulder and upper arm level, left arm, initial encounter; W01.0XXA Fall on same level from slipping, tripping and stumbling without subsequent striking against object, initial encounter
CPT/HCPCS: 72040; 73030; 99283; 99284